=== PATIENT | male | born 1950 | race Caucasian/White ===

== ENCOUNTER 2017-01-04 16:22 | Emergency (ER) | payer MEDICARE, OTHER ==
[~2017-01-04] VITALS: Ht 160 cm; Wt 78.4 kg
[2017-01-04 16:25] VITALS: Ht 160 cm; Wt 78.4 kg
[2017-01-04] MEDS ORDERED: AZIT250T94 PO (16:55)
[2017-01-04] MEDS ORDERED: ALBU8.5H3 INH (16:55)
[2017-01-04] MEDS ORDERED: BENZ100C70 PO (16:56)
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
[2017-01-04 17:28] VITALS: BP 135/89; PULSE 68; RESP 18
== END 2017-01-04 17:25 | disposition home or self-care (01) ==
LOC: FTE 16:22
DX: J20.9 Acute bronchitis, unspecified (principal); I10 Essential (primary) hypertension
CPT/HCPCS: 99284

== ENCOUNTER 2017-02-13 12:47 | Emergency (ER) | payer MEDICARE, OTHER ==
[~2017-02-13] VITALS: Ht 172.7 cm; Wt 85.0 kg
[~2017-02-13 12:47] MED LIST: ALBU8.5H3 INH; AZIT250T94 PO; BENZ100C70 PO
[2017-02-13 12:55] VITALS: Ht 172.7 cm; Wt 85.0 kg
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
[2017-02-14] MEDS ORDERED: IBUP-1542 PO (19:30)
== END 2017-02-13 16:26 | disposition left against medical advice (07) ==
LOC: FTE 12:47
DX: M25.562 Pain in left knee (principal); I10 Essential (primary) hypertension
CPT/HCPCS: 99282

== ENCOUNTER 2017-02-14 17:24 | Emergency (ER) | payer MEDICARE, OTHER ==
[~2017-02-14] VITALS: Ht 177.8 cm; Wt 76.0 kg
[2017-02-14 17:39] VITALS: Ht 177.8 cm; Wt 76.0 kg
[2017-02-14] MEDS ORDERED: ONDANSETRON (ODT) 4 MG TAB ODT STA (18:50)
[2017-02-14] MEDS ORDERED: HYDROCODONE/APAP (10/325) TAB PO ONE (19:00)
[2017-02-14] MEDS ORDERED: IBUP-1542 PO (19:30)
--- NOTE | 2017-02-14 19:32 | RADRPT ---
PROCEDURE: Left knee x-ray CLINICAL INDICATION: left knee pain TECHNIQUE: Multiple views of the left knee were obtained. COMPARISON: None FINDINGS: There is normal mineralization. No fracture is identified. There is mild joint space narrowing in the medial femorotibial compartment. There is no joint effusion. There is no significant soft tissue swelling. IMPRESSION: Mild joint space narrowing seen in the medial femorotibial compartment. Otherwise, no significant ab normalities are identified. RPTAT:AAJJ Physician Giovanna Date Time Electronically viewed and signed by Rosas Donato Physician on 02/14/2017 19:32 ROBERTA/
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
[2017-02-14 21:18] VITALS: BP 115/63; PULSE 72; RESP 20; TEMP 98.7
== END 2017-02-14 21:18 | disposition home or self-care (01) ==
LOC: E/R 17:24
DX: S80.02XA Contusion of left knee, initial encounter (principal); I10 Essential (primary) hypertension; V03.10XA Pedestrian on foot injured in collision with car, pick-up truck or van in traffic accident, initial encounter; Z87.891 Personal history of nicotine dependence
CPT/HCPCS: 73562

== ENCOUNTER 2017-03-15 19:43 | Emergency (ER) | payer MEDICARE, OTHER ==
[~2017-03-15] VITALS: Ht 172.7 cm; Wt 78.0 kg
[~2017-03-15 19:43] MED LIST changes: -AZIT250T94 PO; -BENZ100C70 PO
[2017-03-15 19:49] VITALS: Ht 172.7 cm; Wt 78.0 kg
--- NOTE | 2017-03-15 20:45 | ERA ---
ER Documentation Chief Complaint Date/Time DATE: 03/15/17 TIME: 20:39 Chief Complaint lower back pain, states has broken spine HPI This is a 67-year-old male presenting with a chief complaint of back pain. Patient was seen at [facility] 3 days ago and diagnosed with a mild nonspecific stranding/fluid within the right retroperitoneum. Patient had a follow-up appointment with thoracic surgeon today but could not see the doctor due to multiple personal reasons. Patient's pain medication has run out. Patient is requesting more pain medication to last until Sunday. Patient has no other complaints at this time. Patient denies pain lasting more than 6 weeks ; Denies saddle parasthesia, incontinence, or RPND; Denies fever, chills, or night sweats. Patient also denies history of sciatica, disk herniation, spinal stenosis, fibromyalgia, cancer, HIV, IVDU, arthritis or recent surgery. Patient describes no other associated manifestations. ROS All systems reviewed and are negative except as per history of present illness. Medications Home Meds Active Scripts Albuterol Sulfate* (Proair HFA*) 8.5 Gm Hfa.aer.ad, 2 PUFF INH Q4H Y for WHEEZING AND SOB, #1 INHALER Prov:MARCIANO CHE PA-C 01/04/17 Allergies Allergies: Coded Allergies: No Known Drug Allergies (Verified Allergy, Unknown, 03/15/17) PMhx/Soc History of Surgery: No Hx Cardiac Disorders: Yes (htn) Hx Alcohol Use: Yes Hx Substance Use: No Hx Tobacco Use: No Smoking Status: Never smoker Physical Exam Vitals Vital Signs Date Time Temp Pulse Resp B/P Pulse Ox O2 Delivery O2 Flow Rate FiO2 03/15/17 19:49 99.9 82 20 169/71 97 Physical Exam Const: Well-appearing, no acute distress able to joke around. Head: Atraumatic Eyes: Normal Conjunctiva ENT: Normal External Ears, Nose and Mouth. Neck: Full range of motion..~ No meningismus. Resp: Clear to auscultation bilaterally Cardio: Regular rate and rhythm, no murmurs Abd: Soft, non tender, non distended. Normal bowel sounds Skin: No petechiae or rashes Back: Range of motion decreased secondary to pain. Negative straight leg raise test. No midline or flank tenderness Ext: No cyanosis, or edema Neur: Awake and alert. Paresthesia on the lateral thighs bilaterally. No saddle paresthesia. DTRs 2+ bilaterally. Otherwise neurovasculary intact. Psych: Normal Mood and Affect Procedures/MDM This is a 67-year-old male presenting with a chief complaint of back pain that was diagnosed as mild nonspecific stranding/fluid within the right retroperitoneum at [facility] by MRI and read by the radiologist Dr. Victor Manuel Babin. Patient is requesting a pain medication refill to last him to his appointment on Sunday. Patient's appointment was today but he could not make it. Patient had called the surgeon who has told him that it is appropriate to follow-up on Sunday. Patient's physical exam revealed numbness and tingling on the lateral thighs. There is no saddle paresthesia. DTRs are 2+ bilaterally in the patella. Patient was neurovascularly intact bilaterally. Patient denies urinary incontinence or retention. I have presented this case to my attending Dr. Hernandez who has reassured that pain medication filled through Sunday is acceptable. Will prescribe [address] [place] on discharge. Vitals are stable and his current condition is appropriate for discharge. Departure Diagnosis: Primary Impression: Back pain Qualified Code: M54.5 - Acute right-sided low back pain without sciatica Condition: Stable Additional Instructions: Follow-up with orthopedic/spine surgeon in 3 days. Return the the emergency department immediately if symptoms worsen or change. If you have any questions regarding medications, ask your pharmacist or us before you leave. If any adverse reactions occur while taking your medications, discontinue the treatment and return to the emergency department immediately. Take your medications as directed, and complete the entire course of treatment. LIN BRAGA PA-C Mar 15, 2017 20:45
[2017-03-15] MEDS ORDERED: HYDR-906 PO (20:46)
== END 2017-03-15 21:15 | disposition home or self-care (01) ==
LOC: FTE 19:43
DX: M54.5 Low back pain (principal); I10 Essential (primary) hypertension
CPT/HCPCS: 99283

== ENCOUNTER 2017-07-30 14:55 | Inpatient (IN) | payer MEDICARE, OTHER ==
[~2017-07-30] VITALS: Ht 172.7 cm; Wt 72.0 kg
[~2017-07-30 14:55] MED LIST changes: +HYDR-906 PO
[2017-07-30 14:58] VITALS: Ht 172.7 cm; Wt 72.0 kg
[2017-07-30] MEDS ORDERED: ONDANSETRON 4 MG INJ ONE (20:06)
[2017-07-30] MEDS ORDERED: morphine 4 MG/ML VIAL ONE (20:07)
[2017-07-30 22:32] LABS: ALANINE AMINOTRANSFERASE 65 IU/L (13-69); ALBUMIN 2.9 g/dl (3.3-4.9); ALBUMIN/GLOBULIN RATIO 0.56; ALKALINE PHOSPHATASE 214 IU/L (42-121); ANION GAP 11 (8-16); ASPARTATE AMINO TRANSFERASE 145 IU/L (15-46); BILIRUBIN,INDIRECT 3.1 mg/dl (0-1.1); BILIRUBIN,TOTAL 8.5 mg/dl (0.2-1.3); BLOOD UREA NITROGEN 17 mg/dl (7-20); CALCIUM 8.5 mg/dl (8.4-10.2); CARBON DIOXIDE 24 mmol/L (21-31); CHLORIDE 106 mmol/L (97-110); CREATININE 0.67 mg/dl (0.61-1.24); GLUCOSE 126 mg/dl (70-220); SODIUM 138 mmol/L (135-144); TROPONIN-I < 0.012 ng/ml (0.00-0.12)
--- NOTE | 2017-07-30 23:39 | ERD ---
ER Documentation Chief Complaint Chief Complaint c/o body ache , noted bruise on b/l arms , pt denies any fall HPI 67-year-old male complains of body aches. Patient denies any nausea vomiting fevers chills. Denies any focal neurologic complaints. Denies any trauma. Denies any other current issues. ROS All systems reviewed and are negative except as per history of present illness. Medications Home Meds Active Scripts Hydrocodone/Acetaminophen ([place] 5-325 Tablet) 1 Each Tablet, 1 TAB PO Q6H Y for PAIN, #7 TAB Prov:LIN BRAGA PA-C 03/15/17 Albuterol Sulfate* (Proair HFA*) 8.5 Gm Hfa.aer.ad, 2 PUFF INH Q4H Y for WHEEZING AND SOB, #1 INHALER Prov:MARCIANO CHE PA-C 01/04/17 Allergies Allergies: Coded Allergies: No Known Drug Allergies (Verified Allergy, Unknown, 03/15/17) PMhx/Soc History of Surgery: No Hx Cardiac Disorders: Yes (htn) Hx Alcohol Use: Yes (6 PK/DAY) Hx Substance Use: No Hx Tobacco Use: No Physical Exam Vitals Vital Signs Date Time Temp Pulse Resp B/P Pulse Ox O2 Delivery O2 Flow Rate FiO2 07/30/17 14:58 98.1 89 18 130/65 100 Physical Exam Const: [] Head: Atraumatic Eyes: Normal Conjunctiva ENT: Normal External Ears, Nose and Mouth. Neck: Full range of motion..~ No meningismus. Resp: Clear to auscultation bilaterally Cardio: Regular rate and rhythm, no murmurs Abd: Soft, non tender, non distended. Normal bowel sounds Skin: No petechiae or rashes Back: No midline or flank tenderness Ext: No cyanosis, or edema Neur: Awake and alert Psych: Normal Mood and Affect Result Diagram: 07/30/171999 Results 24 hrs Laboratory Tests Test 07/30/17 20:00 White Blood Count Pending Red Blood Count Pending Hemoglobin Pending Hematocrit Pending Mean Corpuscular Volume Pending Mean Corpuscular Hemoglobin Pending Mean Corpuscular Hemoglobin Concent Pending Red Cell Distribution Width Pending Platelet Count Pending Mean Platelet Volume Pending Sodium Level 138mmol/L Potassium Level 3.0mmol/L Chloride Level 106mmol/L Carbon Dioxide Level 24mmol/L Anion Gap 11 Blood Urea Nitrogen 17mg/dl Creatinine 0.67mg/dl Glucose Level 126mg/dl Calcium Level 8.5mg/dl Total Bilirubin 8.5mg/dl Direct Bilirubin 5.40mg/dl Indirect Bilirubin 3.1mg/dl Aspartate Amino Transf (AST/SGOT) 145IU/L Alanine Aminotransferase (ALT/SGPT) 65IU/L Alkaline Phosphatase 214IU/L Ammonia 22umol/l Troponin I < 0.012ng/ml Total Protein 8.0g/dl Albumin 2.9g/dl Globulin 5.10g/dl Albumin/Globulin Ratio 0.56 Lipase 55U/L Procedures/MDM Medical decision-making: Very pleasant patient with body aches. At this point clinically stable for outpatient management. Patient will be discharged home. Departure Diagnosis: Primary Impression: Pain Condition: Stable Patient Instructions: Chronic Pain ROXANNE DISLA Jul 30, 2017 23:39
[2017-07-30 23:41] LABS: INR 1.47; PROTIME 17.9 Sec (12.2-14.2); PT RATIO 1.4
[2017-07-30 23:42] LABS: PARTIAL THROMBOPLASTIN TIME 32.1 Sec (25.0-35.0)
[2017-07-30 23:44] LABS: ABNORMAL IP MESSAGE 1; BASOPHILS % 0.6 % (0.0-2.0); EOSINOPHILS % 0.6 % (0.0-7.0); HEMATOCRIT 39.5 % (42.0-52.0); HEMOGLOBIN 13.1 g/dl (14.0-18.0); LYMPHOCYTES # 0.7 10^3/ul (0.8-2.9); LYMPHOCYTES % 19.4 % (15.0-51.0); MEAN CORPUSCULAR HEMOGLOBIN 31.9 pg (29.0-33.0); MEAN CORPUSCULAR HGB CONC 33.2 g/dl (32.0-37.0); MEAN CORPUSCULAR VOLUME 96.1 fl (82.0-101.0); MONOCYTE # 0.7 10^3/ul (0.3-0.9); MONOCYTES % 20.6 % (0.0-11.0); NEUTROPHIL # 2.1 10^3/ul (1.6-7.5); NEUTROPHILS % 58.2 % (39.0-77.0); POSITIVE DIFF @See below; RED BLOOD COUNT 4.11 10^6/ul (4.70-6.10); RED CELL DISTRIBUTION WIDTH 20.8 % (11.5-14.5); WHITE BLOOD COUNT 3.6 10^3/ul (4.8-10.8)
[2017-07-31 00:05] LABS: PLATELET COUNT 26 10^3/UL (140-415)
--- NOTE | 2017-07-31 08:11 | RADRPT ---
PROCEDURE: XR Chest. CLINICAL INDICATION: Chest pain. TECHNIQUE: Portable AP view of the chest was obtained. COMPARISON: None. FINDINGS: The cardiomediastinal silhouette is mildly enlarged . Mild bibasilar subsegmental atelectasis is pr esent. There is no evidence of pneumonia. There is no evidence for pleural effusion, pneumothorax o r pulmonary vascular congestion. Multiple old healed right rib fractures are demonstrated. There is no evidence of acute osseous abnormality. RPTAT:HJJR IMPRESSION: 1. Mild cardiac silhouette enlargement and mild bibasilar subsegmental atelectasis. 2. Old healed right rib fractures Physician Roger Date Time Electronically viewed and signed by Physician Roger on 07/30/2017 23:00 /
[2017-07-31] MEDS ORDERED: POTASSIUM CHLORIDE (SR) 20 MEQ TAB PO STA ×2 (09:33→11:22)
[2017-07-31] MEDS ORDERED: ONDANSETRON 4 MG INJ IV PRN ×2 (10:30→11:30)
[2017-07-31] MEDS ORDERED: ACETAMINOPHEN 325 MG TAB PO PRN (10:30)
[2017-07-31 11:00] VITALS: TEMP 98.5
--- NOTE | 2017-07-31 11:15 | HP ---
Date/Time of Note Date/Time of Note DATE: 07/31/17 TIME: 11:15 Assessment/Plan VTE Prophylaxis VTE Prophylaxis Intervention: SCD's Assessment/Plan Chief Complaint/Hosp Course 67-year-old homeless male who is also a poor historian and daily alcohol abuse, presented to the emergency room with generalized weakness and inability to walk. 1. Generalized weakness/progressive debility. -Obtain lumbar spine MRI to rule out acute fractures. -PT eval and treatment. 2. Transaminase elevation with hyperbilirubinemia in a patient with alcoholism. Rule out Hep C, Alcoholic liver disease. -Obtain abdominal US,acute hepatitis panel/HIV antibodies. -MRCP to rule out choledocholithiasis. -Trend LFTs and consult GI. 3. Thrombocytopenia with concomitant neutropenia with hx of alcoholism. Rule out liver disease/splenomegaly. Hematological conditions remains in differential. If w/u for above causes negative will further expand differential to include Collagen/vascular disorders,infection and nutritional deficiencies and other causes of cytopenia. -F/u abdominal ultrasound. Transfuse 1 unit platelet and monitor level. -Obtain cultures. Will consider prophylactic antibiotics. 4. Electrolyte imbalances/hypokalemia -Replete. Add magnesium level. 5. History of asthma. Controlled. -As needed bronchodilators. 6. Chronic non-reducible Ventral hernia of right abdominal wall -At this time, patient does not want to have any further follow-up on this. 7. Chronic back pain with reported history of spinal fractures. -Continue pain medications as needed. Follow-up with MRI. 8. Homelessness. 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 9. Alcohol abuse. -Cessation advised. DVT prophylaxis: SCDs Plan: Patient will be admitted to inpatient floor. He will be started on a diet. We will also request manager social responsibility and case management consult as patient would benefit from extended care facility with his progressive debility and current homelessness situation. Further recommendations per hospital course. Approximately 60 minutes was spent on this history and physical. Patient was seen in collaboration with Dr. Sultana. Problems: HPI/ROS Admit Date/Time Admit Date/Time Hx of Present Illness This is a 67-year-old homeless male who is also a very poor historian, with a history of asthma, alcohol abuse, chronic back pain with reported spinal fractures, alcohol abuse, ventral hernia, presented to the emergency room with generalized body pain. Patient does not have a primary care doctor. In the emergency room, patient was noted with bruising on bilateral arms, however he denied any history of fall or trauma. He denied hematemesis, melena,hematuria, hematochezia, hematuria or other bleeding episodes. Patient denied chest pain, palpitation, shortness of breath, nausea, vomiting, abdominal pain, focal deficit or other constitutional symptoms. Patient repeatedly states that he is feeling weak all over the body and inability to walk. His initial labs with WBC 3600, platelet 26,000, potassium 3.0, total bilirubin 8.5, direct bilirubin 5.40 and indirect bilirubin 3.1 with AST 145/alkaline phosphatase 214 and elevated PT 17.9. Hgb stable at 13.1 with Hct 39.1. Patient was admitted for further evaluation. Patient was admitted for further evaluation ROS A 12 point review of system was assessed and is negative other than what is mentioned in HPI. PMH/Family/Social Past Medical History See HPI Past Surgical History See HPI Social History Former smoker. Current everyday alcohol abuse. Denied any illicit drug use. Smoking Status: Former smoker Exam/Review of Systems Vital Signs Vitals Vital Signs Date Time Temp Pulse Resp B/P Pulse Ox O2 Delivery O2 Flow Rate FiO2 07/31/17 08:18 98.9 105 18 130/69 98 Room Air Exam Exam General: Chronically ill looking, male who is also very lethargic HEENT: Normocephalic, Atraumatic, No laceration or hematoma; Eyes: PEERL, Conjunctiva clear, Anicteric sclera Neck: Supple without any lymphadenopathy, nontender, no JVD, no carotid bruits, trachea midline, no thyromegaly Cardiac: S1, S2 auscultated, regular rhythm and rate, no mumurs or gallop Pulmonary: Normal respiratory effort. Chest clear to auscultation bilaterally, no adventitious breath sounds GI: Huge mass/hernia to right abdomen. Soft, non tender, non- distended, no masses, no rebound tenderness or guarding. Bowel sounds active on all four quadrants Genitourinary: Deferred Extremities: Generalized weakness to lower extremities. Denies any numbness/ tingling. No cyanosis, clubbing, or edema. Pulses [2+] bilaterally. No focal weakness appreciated. Neurologic: Lethargic and confused. Follows simple commands. Skin: Clean,dry, and intact. No ecchymosis, no rashes, or lesions Labs Result Diagram: 07/30/17199907/30/171999 CONOR CARDONA NP Jul 31, 2017 11:15
[2017-07-31] MEDS ORDERED: SOD CHLORIDE 0.9% 250 ML IV* ONE (11:22)
[2017-07-31] MEDS ORDERED: ACETAMINOPHEN 650 MG SUPP PR PRN (11:30)
[2017-07-31] MEDS ORDERED: ALBUTEROL/IPRATROPIUM (NEB) 3 ML AMP HHN PRN (11:30)
[2017-07-31] MEDS ORDERED: NACL 0.9% 3 ML SYG IV SCH (11:30)
[2017-07-31 12:05] LABS: HAAIG REFLEX REFLEX FILED
[2017-07-31 12:20] VITALS: BP 138/82; RESP 18
[2017-07-31] MEDS: SOD CHLORIDE 0.9% 1,000 ML IV SCH (12:32)
[2017-07-31 12:38] LABS: CHOL/HDL RATIO 5.7 RATIO
[2017-07-31 13:28] LABS: HEPATITIS B CORE ANTIBODY NEGATIVE (NEGATIVE)
[2017-07-31 14:40] VITALS: BP 144/87; RESP 16
[2017-07-31] MEDS: ACETAMINOPHEN 325 MG TAB PO PRN (15:05)
[2017-07-31] MEDS ORDERED: MAGNESIUM SULFATE 2 GM/50 ML 50 ML IVPB ONE (15:30)
[2017-07-31] MEDS: morphine 2 MG INJ IV PRN ×2 (16:38→21:48)
[2017-07-31] MEDS ORDERED: PHYTONADIONE 10 MG/ML INJ SC ONE (17:30)
--- NOTE | 2017-07-31 17:46 | CONS ---
Date/Time of Note Date/Time of Note DATE: 07/31/17 TIME: 17:14 Assessment/Plan Assessment/Plan Chief Complaint/Hosp Course Summary Assessment and Plan: Assessment: Hyperbilirubinemia r/o choledocholithiasis vs worsening of liver disease Hematemesis-likely secondary to esophageal varices Black stools likely due to esophageal varices Generalized weakness Thrombocytopenia likely secondary to cirrhosis Abnormal LFTs/ Hep C Ab positive vs ETOH Cirrhosis-likely combination of EtOH and hepatitis C Electrolyte imbalance/hypokalemia/replaced History of asthma Chronic back pain Painless abdominal hernia Plan: Plan for EGD tomorrow N.p.o. after 08/01/2017 10am Endoscopy - risks/benefits/alternatives/indications of procedure and sedation/ anesthesia discussed with patient who states understanding and gives informed consent to proceed. PARQ held and questions were answered. MRCP ordered- Results pending- further recommendations based on results HCV RNA ordered Alpha-fetoprotein ordered Patient seen in collaboration with Dr. Urena Chief Complaint/Reason for Visit: Bilirubinemia Transaminitis Hematemesis Black stools History of Present Illness: This is a 67-year-old male with a history of cirrhosis, hepatitis C, HTN, and diabetes. He presented to the hospital with increased weakness. Initial workup revealed hyperbilirubinemia 8.5, elevated aminotransferase consistent with alcohol-induced (AST 145, ALT 65). Alk phos 214, albumin 2.9, K+ 3.0, PT 17.9, INR 1.47, platelets 26, hemoglobin 13.1, hematocrit 39.5. At the time of examination, pt states he had 1 episode of hematemesis yesterday, 2 black stools in the past few days. He currently denies abdominal pain, nausea, vomiting, unintentional weight loss, constipation , pyrosis, or anorexia. He had an EGD about 6-8 months ago, and was told he had "swollen veins, which will go away". With recent hematemesis and black stools will plan for EGD tomorrow, will give vitamin K 10 mg subcutaneously this evening and again in the morning, he has already received 1 unit of platelets. MRCP has been ordered and results are pending, further recommendations based on results of MRCP. Will check HCV RNA, and alpha-fetoprotein. Thank you for this consultation. Past Medical History: Hypertension Diabetes Cirrhosis of the liver Hepatitis C Chronic back pain History of asthma Abdominal hernia Allergies: No known drug allergies Family History: No pertinent family history Social History: Denies smoking Denies drug use including IV drugs EtOH drinks 3 beers a day PHYSICAL EXAMINATION: GENERAL: Disheveled, alert & oriented x 3, in no acute distress SKIN: No lesions, stigmata chronic liver disease, multiple bruises LYMPHATIC: No palpable lymphadenopathy. HEAD: Normocephalic, atraumatic, no tenderness. EYES: Pupils equal reactive to light and accommodation, full extraocular movements, sclera clear, non-icteric, no discharge. EARS/NOSE AND THROAT: Ears normal, nose normal, oropharynx normal, oral membranes well hydrated without lesions. NECK: Supple, no masses, thyroid normal, CHEST: Inspection within normal limits. CARDIOVASCULAR: Heart: Regular rate and rhythm, no murmurs, gallops or rubs. RESPIRATORY: Lungs clear to auscultation and percussion, no wheezing, no rubs GASTROINTESTINAL AND LIVER: Abdomen: Soft, non tenderness, non-painful abd hernia, no masses, no guarding, no rebound tenderness, normoactive bowel sounds. Rectal: Deferred. GENITOURINARY: Male genitalia within normal limits. Problems: Consultation Date/Type/Reason Admit Date/Time Date of Consultation: Jul 31, 2017 Type of Consultation: GI Reason for Consultation Hyperbilirubinemia Transaminitis Hematemesis/black stools ENT: no complaints Social History Smoking Status: Former smoker Exam/Review of Systems Vital Signs Vitals Vital Signs Date Time Temp Pulse Resp B/P Pulse Ox O2 Delivery O2 Flow Rate FiO2 07/31/17 14:40 98.8 99 16 144/87 98 07/31/17 11:00 Room Air Results Result Diagram: 07/30/17199907/30/171999 Results 24 hrs Laboratory Tests Test 07/30/17 20:00 07/31/17 11:56 White Blood Count 3.6 L Red Blood Count 4.11 L Hemoglobin 13.1 L Hematocrit 39.5 L Mean Corpuscular Volume 96.1 Mean Corpuscular Hemoglobin 31.9 Mean Corpuscular Hemoglobin Concent 33.2 Red Cell Distribution Width 20.8 H Platelet Count 26 *L Mean Platelet Volume Neutrophils % 58.2 Lymphocytes % 19.4 Monocytes % 20.6 H Eosinophils % 0.6 Basophils % 0.6 Nucleated Red Blood Cells % 0.0 Neutrophils # 2.1 Lymphocytes # 0.7 L Monocytes # 0.7 Eosinophils # 0.0 Basophils # 0.0 Nucleated Red Blood Cells # 0.0 Prothrombin Time 17.9 H Prothrombin Time Ratio 1.4 INR International Normalized Ratio 1.47 Activated Partial Thromboplast Time 32.1 Sodium Level 138 Potassium Level 3.0 L Chloride Level 106 Carbon Dioxide Level 24 Anion Gap 11 Blood Urea Nitrogen 17 Creatinine 0.67 Glucose Level 126 Calcium Level 8.5 Total Bilirubin 8.5 H Direct Bilirubin 5.40 H Indirect Bilirubin 3.1 H Aspartate Amino Transf (AST/SGOT) 145 H Alanine Aminotransferase (ALT/SGPT) 65 Alkaline Phosphatase 214 H Ammonia 22 Troponin I < 0.012 Total Protein 8.0 Albumin 2.9 L Globulin 5.10 H Albumin/Globulin Ratio 0.56 Lipase 55 Hemoglobin A1c 4.4 Magnesium Level 1.5 L Triglycerides Level 105 Cholesterol Level 57 L LDL Cholesterol, Calculated 26 HDL Cholesterol 10 L Cholesterol/HDL Ratio 5.7 Thyroid Stimulating Hormone (TSH) 2.940 Hepatitis B Surface Antigen NEGATIVE Hepatitis B Core Total Antibody NEGATIVE Hepatitis C Antibody REACTIVE H HIV (1&2) Antibody NEGATIVE Medications Medications Current Medications Sodium Chloride (NS) 1,000 ml @ 50 mls/hr Q20H IV Last administered on 12:32; Admin Dose 50 MLS/HR; Start 07/31/17 at 11:15 Ondansetron HCl (Zofran Inj) 4 mg Q6H PRN IV NAUSEA AND/OR VOMITING; Start 07/31/17 at 11:30 Acetaminophen (Tylenol Tab) 650 mg Q6H PRN PO PAIN LEVEL 1-3 OR FEVER Last administered on 07/31/17 15:05; Admin Dose 650 MG; Start 07/31/17 at 11:30 Acetaminophen (Tylenol Supp) 650 mg Q6H PRN SD PAIN LEVEL 1-3 OR FEVER; Start 07/31/17 at 11:30 Morphine Sulfate (morphine) 2 mg Q4H PRN IV SEVERE PAIN LEVEL 7-10 Last administered on 07/31/17 16:38; Admin Dose 2 MG; Start 07/31/17 at 11:30 Docusate Sodium (Colace) 100 mg Q12H PRN PO CONSTIPATION; Start 07/31/17 at 11: 30 Famotidine 20 mg 20 mg Q12 PO ; Start 07/31/17 at 21:00 Magnesium Sulfate (Magnesium Sulfate 2 Gm/50 ml) 50 ml @ 25 mls/hr ONCE ONCE IVPB Last administered on 07/31/17t 16:37; Admin Dose 25 MLS/HR; Start at 15:30; Stop 07/31/17 at 17:29 Copies To: CC: WILL URENA MD, VICTORIA Jul 31, 2017 17:26
[2017-07-31] MEDS: FAMOTIDINE 20 MG TAB PO SCH (20:12)
[2017-07-31] MEDS: ALBUTEROL/IPRATROPIUM (NEB) 3 ML AMP HHN SCH (21:00)
[2017-07-31 21:08] VITALS: BP 105/59; RESP 18
[2017-08-01] VITALS (17 sets, daily range): BP systolic 100–164; BP diastolic 57–102; PULSE 90–114; RESP 17–20
[2017-08-01] MEDS ORDERED: VANCOMYCIN IV PER PHARMACY XX SCH (03:30)
[2017-08-01] MEDS ORDERED: VANCOMYCIN 1.5 GM in SOD CHLORIDE 0.9% 250 ML IVPB ONE (04:00)
[2017-08-01 06:00] LABS: ALBUMIN 2.5 g/dl (3.3-4.9); ALBUMIN/GLOBULIN RATIO 0.53; BILIRUBIN,DIRECT 2.1 mg/dl (0.00-0.20); BILIRUBIN,INDIRECT 2.5 mg/dl (0-1.1); BILIRUBIN,TOTAL 4.6 mg/dl (0.2-1.3); CREATININE 0.63 mg/dl (0.61-1.24); MAGNESIUM 1.7 mg/dl (1.7-2.5); PHOSPHORUS 2.4 mg/dl (2.5-4.9); POTASSIUM 3.9 mmol/L (3.5-5.1); TOTAL PROTEIN 7.2 g/dl (6.1-8.1)
[2017-08-01] MEDS: morphine 2 MG INJ IV PRN ×3 (06:31→23:21)
[2017-08-01 07:09] LABS: ABNORMAL IP MESSAGE 1; HEMATOCRIT 33.4 % (42.0-52.0); HEMOGLOBIN 11.1 g/dl (14.0-18.0); MEAN CORPUSCULAR HEMOGLOBIN 32.8 pg (29.0-33.0); MEAN CORPUSCULAR HGB CONC 33.2 g/dl (32.0-37.0); MEAN CORPUSCULAR VOLUME 98.8 fl (82.0-101.0); MEAN PLATELET VOLUME 11.3 fl (7.4-10.4); POSITIVE DIFF @See below; RED BLOOD COUNT 3.38 10^6/ul (4.70-6.10); RED CELL DISTRIBUTION WIDTH 21.1 % (11.5-14.5); WHITE BLOOD COUNT 1.5 10^3/ul (4.8-10.8)
[2017-08-01] MEDS: SOD CHLORIDE 0.9% 1,000 ML IV SCH ×2 (07:15→20:18)
[2017-08-01 07:16] LABS: PLATELET COUNT 25 10^3/UL (140-415)
[2017-08-01] MEDS: ALBUTEROL/IPRATROPIUM (NEB) 3 ML AMP HHN SCH ×4 (08:25→21:40)
[2017-08-01] MEDS: FAMOTIDINE 20 MG TAB PO SCH ×2 (09:00→20:19)
[2017-08-01] MEDS ORDERED: PHYTONADIONE 10 MG/ML INJ SC ONE (09:00)
[2017-08-01 09:41] LABS: ANISOCYTOSIS 3+ (0-0); BASOPHILS % (M) 1 % (0-2); BURR CELLS 1+ (0-0); EOSINOPHILS % (M) 2 % (0-7); GIANT THROMBO% (M) 5 % (0-0); MONOCYTES % (M) 13 % (0-11); MYELOCYTES % (M) 1 % (0-0); PLATELET ESTIMATE SIG DECREASED; POIKILOCYTOSIS 3+ (0-0); POLYCHROMASIA 2+ (0-0); REACTIVE LYMPHOCYTES% (M) 1 % (0-0); TARGET CELLS 1+ (0-0)
--- NOTE | 2017-08-01 10:23 | RADRPT ---
PROCEDURE: US Abdomen. CLINICAL INDICATION: ELEVATED LFTS / SEE NOTES TECHNIQUE: Multiple real-time images were acquired of the patient's abdomen and retroperitoneum ut ilizing a high resolution transducer. COMPARISON: None. FINDINGS: The liver demonstrates normal echogenicity. The liver is normal in size and no focal solid lesions are seen. The portal vein is patent with normal direction of flow. No intrahepatic biliary dilatat ion is seen. The liver measures 16.0 cm in length. A 2.3 cm gallstone is located within the neck of the gallbladder. In addition there is gallbladder s ludge. There is no evidence of wall thickening, surrounding fluid or positive Smith's sign. The co mmon bile duct measures 11.7 mm in maximal dimension. The spleen is enlarged in size. The spleen measures 17.4 cm in length. No free fluid is identified. The left kidney is normal in size, and demonstrate normal echogenicity and cortical thickness. Ther e is no evidence of hydronephrosis. A 2 x 2 cm left renal cyst is present. There is no evidence of h ydronephrosis. There are no kidney stones. The pancreas, aorta and inferior vena cava were not visualized. IMPRESSION: 1. Cholelithiasis and sludge without evidence of gallbladder wall thickening, surrounding fluid or p ositive sonographic Smith's sign. 2. Dilated common bile duct without intrahepatic biliary ductal dilatation. The common bile duct me asures 11.7 mm. 3. Splenomegaly. 4. Unremarkable liver. 5. Left renal cyst. 6. The pancreas, aorta, and inferior vena cava were not visualized. RPTAT: HRSR Physician Karen Date Time Electronically viewed and signed by Physician Karen on 08/01/2017 10:22 RR/
[2017-08-01] MEDS: LEVOFLOXACIN 500MG/D5W (PMX) 100 ML IVPB SCH (11:36)
--- NOTE | 2017-08-01 12:07 | PN ---
Date/Time of Note Date/Time of Note DATE: 08/01/17 TIME: 12:07 Assessment/Plan VTE Prophylaxis VTE Prophylaxis Intervention: ambulation, SCD's Lines/Catheters IV Catheter Type (from Nrsg): Mid Line Urinary Cath still in place: No Assessment/Plan Chief Complaint/Hosp Course 1. Generalized weakness/progressive debility. -Follow-up with lumbar spine MRI to rule out acute fractures. -PT eval and treatment. 2. Alcoholic and Hep C Liver cirrhosis. -Hyperbilirubinemia portends a poor prognosis - Recommend outpatient Motorcycle Technician follow-up if patient is amenable. -Conservative medical management/Lifestyle modification/ Cessation of alcohol abuse. 3.Hepatitis C. -F/u RNA PCR studies to detect current infection -Defer GI on further recs. 4. Transaminase elevation with hyperbilirubinemia secondary to #2 -Monitor 5. Thrombocytopenia with concomitant Leukopenia, most likely secondary to splenomegaly with splenic margination. Hematological conditions remains in differential but is less likely given the normal AFP/Monospot. Follow-up peripheral smear studies. -Status post plateletpheresis- GI team had ordered 2 plateletpheresis today prior EGD.Would not correct platelet any further. -Hold off to GCSF as there is no absolute neutropenia. If no improvement, consider inpatient heme eval-if not, defer for outpatient follow-up 6. Hematemesis, acute GI bleed (This was not mentioned to me with first encounter). US with stigmata of liver disease with portal HTN concerning for variceal bleed. -GI on board and plan for endoscopy -Monitor HH closely and ransfuse as indicated. 7. Anemia, multifactorial with acute and chronic GI blood loss, alcohol toxicity and spllenomegaly -Stable HH.Monitor closely. 8. SIRS with Leukopenia- Needs to rule out sepsis. -Currently no indication for any GCSF as his neutrophils count stable. -Obtain lactate level. Continue IV fluids, start prophylactic antibiotic with Levaquin and vancomycin -Obtain CRP/ESR and follow-up final cultures 9.Stigmata of Portal HTN/Splenomegaly/Hypoalbuminemia with liver cirrhosis 10. History of asthma. Controlled. -As needed bronchodilators. 11. Chronic non-reducible Ventral hernia of right abdominal wall -At this time, patient does not want to have any further follow-up on this. 12. Chronic back pain with reported history of spinal fractures. -Continue pain medications as needed. Follow-up with MRI. 13.Cholelithiasis. -F/u MRCP to rule out choledocho -Surgery eval 14. Homelessness. 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 15. Alcohol abuse. -Cessation advised. DVT prophylaxis: SCDs Plan: Follow-up with GI recommendations. Follow-up final cultures. Patient was seen in collaboration with Dr. Sultana. Problems: Subjective 24 Hr Interval Summary Free Text/Dictation Today patient is more awake. He has been tolerating diet. However, he now reports to me that he had bloody vomiting episode prior to hospitalization. Patient continued to have weakness with general body pain. He denied any nausea, vomiting or localized abdominal pain. Patient had documented temperature 100.5 with pulse rate 102 yesterday. He denied any chills. Exam/Review of Systems Vital Signs Vitals Vital Signs Date Time Temp Pulse Resp B/P Pulse Ox O2 Delivery O2 Flow Rate FiO2 08/01/17 08:00 98.6 84 20 132/64 96 07/31/17 11:00 Room Air Intake and Output 07/31/17 07/31/17 08/01/17 14:59 22:59 06:59 Intake Total 1060 ml 1100 ml Balance 1060 ml 1100 ml Exam General: Chronically ill looking male, not in any acute distress . HEENT: Normocephalic, Atraumatic, No laceration or hematoma; Eyes: PEERL, Conjunctiva clear, Anicteric sclera Neck: Supple without any lymphadenopathy, nontender, no JVD, no carotid bruits, trachea midline, no thyromegaly Cardiac: S1, S2 auscultated, regular rhythm and rate, no mumurs or gallop Pulmonary: Normal respiratory effort. Chest clear to auscultation bilaterally, no adventitious breath sounds GI: Huge mass/hernia to right abdomen. Soft, non tender, non- distended, no masses, no rebound tenderness or guarding. Bowel sounds active on all four quadrants Genitourinary: Deferred Extremities: Generalized weakness to lower extremities. Denies any numbness/ tingling. No cyanosis, clubbing, or edema. Pulses [2+] bilaterally. No focal weakness appreciated. Neurologic: Awake oriented 3. On and off confusion. Follows commands. Skin: Clean,dry, and intact. No ecchymosis, no rashes, or lesions Results Result Diagram: 08/01/17 0637 08/01/17 0443 Results 24 hrs Laboratory Tests Test 07/31/17 14:04 08/01/17 04:43 08/01/17 04:57 08/01/17 05:36 Alpha Fetoprotein 3.51 Sodium Level 140 Potassium Level 3.9 Chloride Level 111 H Carbon Dioxide Level 22 Anion Gap 11 Blood Urea Nitrogen 14 Creatinine 0.63 Glucose Level 87 Calcium Level 8.0 L Phosphorus Level 2.4 L Magnesium Level 1.7 Total Bilirubin 4.6 #H Direct Bilirubin 2.10 #H Indirect Bilirubin 2.5 H Aspartate Amino Transf (AST/SGOT) 101 H Alanine Aminotransferase (ALT/SGPT) 53 Alkaline Phosphatase 212 H Total Protein 7.2 Albumin 2.5 L Globulin 4.70 H Albumin/Globulin Ratio 0.53 C-Reactive Protein 2.9 H Lab Scanned Report BLOOD TRANSFUSION Test 08/01/17 06:37 White Blood Count 1.5 #L Red Blood Count 3.38 L Hemoglobin 11.1 L Hematocrit 33.4 L Mean Corpuscular Volume 98.8 Mean Corpuscular Hemoglobin 32.8 Mean Corpuscular Hemoglobin Concent 33.2 Red Cell Distribution Width 21.1 H Platelet Count 25 *L Mean Platelet Volume 11.3 H Segmented Neutrophils % (Manual) 61 Band Neutrophils % (Manual) 5 H Lymphocytes % (Manual) 16 Reactive Lymphocytes % (Manual) 1 H Monocytes % (Manual) 13 H Eosinophils % (Manual) 2 Basophils % (Manual) 1 Myelocytes % (Manual) 1 H Nucleated Red Blood Cells % 0.0 Neutrophils # (Manual) 0.9 L Band Neutrophils # 0.0 Absolute Lymphocytes (Manual) 0.2 L Reactive Lymphocytes # 0.0 Absolute Monocytes (Manual) 0.1 L Basophils # (Manual) 0.0 Myelocytes # 0.0 Platelet Estimate SIG DECREASED Giant Platelets 5 H Polychromasia 2+ Poikilocytosis 3+ Anisocytosis 3+ Macrocytosis 3+ Target Cells 1+ Medications Medications Current Medications Sodium Chloride (NS) 1,000 ml @ 50 mls/hr Q20H IV Last administered on t 12:32; Admin Dose 50 MLS/HR; Start 07/31/17 at 11:15 Ondansetron HCl (Zofran Inj) 4 mg Q6H PRN IV NAUSEA AND/OR VOMITING; Start 07/31/17 at 11:30 Acetaminophen (Tylenol Tab) 650 mg Q6H PRN PO PAIN LEVEL 1-3 OR FEVER Last administered on 07/31/17 15:05; Admin Dose 650 MG; Start 07/31/17 at 11:30 Acetaminophen (Tylenol Supp) 650 mg Q6H PRN NE PAIN LEVEL 1-3 OR FEVER; Start 07/31/17 at 11:30 Morphine Sulfate (morphine) 2 mg Q4H PRN IV SEVERE PAIN LEVEL 7-10 Last administered on 08/01/17 06:31; Admin Dose 2 MG; Start 07/31/17 at 11:30 Docusate Sodium (Colace) 100 mg Q12H PRN PO CONSTIPATION; Start 07/31/17 at 11: 30 Famotidine 20 mg 20 mg Q12 PO Last administered on 07/31/17 20:12; Admin Dose 20 MG; Start 07/31/17 at 21:00 Vancomycin HCl 250 ml @ 125 mls/hr Q12H IVPB ; Start 08/01/17 at 16:00 Levofloxacin/ Dextrose (Levaquin 500mg/ D5W 100 ml (Pmx)) 100 ml @ 100 mls/hr Q24H IVPB Last administered on 08/01/17 11:36; Admin Dose 100 MLS/HR; Start 08/01/17 at 09:30 CONOR CARDONA NP Aug 01, 2017 12:07 CONOR CARDONA NP Aug 01, 2017 12:07
--- NOTE | 2017-08-01 15:12 | RADRPT ---
Echocardiogram Report Patient Name: CHINA DU Gender: Male Date: 1950 Study Date: 31-Jul-2017 Screen Handler: [facility] Location: [id number] Ref. Physician: CONOR CARDONA Quality: Adequate Procedures: Transthoracic echocardiogram with complete 2D, M-Mode, and doppler examination. Indications: Weakness. 2D/M Mode Doppler Measurement Value Normal Ranges Measurement Value Normal Ranges LVIDd 2D 4.0 3.5 - 5.6 cm AV Peak Jorge Luis 1.9 m/sec LVIDs 2D 2.5 2.1 - 4.1 cm AV Peak PG 15.0 mmHg FS 2D 37.4 % LVOT Peak Jorge Luis 1.5 m/sec LVPWd 2D 1.3 0.6 - 1.1 cm LVOT Peak PG 9.0 mmHg IVSd 2D 1.3 0.6 - 1.1 cm MV E Peak Jorge Luis 0.6 m/sec IVS/LVPW 2D 1.0 MV A Peak Jorge Luis 1.2 m/sec AoR Diam 2D 2.7 2.0 - 3.7 cm MV E/A 0.5 LA/Ao 2D 1 0 - 1 MV Decel Time 173 msec EDV 2D 62.1 cm3 MV E/A 0.5 ESV 2D 15.3 cm3 TR Peak Jorge Luis 2.5 m/sec LA Dimen 2D 2.5 2.3 - 4.0 cm TR Peak PG 26.0 mmHg RVSP 29.0 mmHg Findings Left Ventricle: Overall, normal left ventricular systolic function. Not all segments visualized. Normal left ventricular cavity size. Mild concentric left ventricular hypertrophy. Ejection fraction is visually estimated at 60 %. Tissue Doppler/Mitral Doppler indices are consistent with impaired relaxation (Stage I diastolic dysfunction). Right Ventricle: Normal right ventricular size. Normal right ventricular systolic function. Left Atrium: The left atrium is normal in size. Right Atrium: The right atrium is normal in size. Mitral Valve: Mild mitral leaflet calcification. Mild mitral annular calcification. Trace mitral regurgitation. Aortic Valve: Normal appearance of the aortic valve. No significant aortic stenosis or insufficiency. Tricuspid Valve: Normal appearance and function of the tricuspid valve with trace physiologic regurgitation. Estimated peak PA systolic pressure 29 mmHg. Pulmonic Valve: Pulmonic valve not well visualized. No evidence of pulmonic regurgitation. Pericardium: Normal pericardium with no significant pericardial effusion. Aorta: Normal aortic root. IVC: Normal size and normal respiratory collapse consistent with normal right atrial pressure. Conclusions 1.Overall, normal left ventricular systolic function. Not all segments visualized. Normal left ventricular cavity size. Mild concentric left ventricular hypertrophy. Ejection fraction is visually estimated at 60 %. Tissue Doppler/Mitral Doppler indices are consistent with impaired relaxation (Stage I diastolic dysfunction). 2.Normal right ventricular size. Normal right ventricular systolic function. 3.The left atrium is normal in size. 4.The right atrium is normal in size. 5.No significant valvular stenosis or regurgitation seen. 6.Normal pericardium with no significant pericardial effusion. Electronically Signed By: Mundo Liu 01-Aug-2017 15:12:14 -0800 Patient Name: CHINA DU Study Date: 31-Jul-2017 [id number]
--- NOTE | 2017-08-01 15:46 | RADRPT ---
Vent Rate: 105 bpm RR Interval: 0 msec MA Interval: 140 msec QRS Duration: 80 msec QT Interval: 364 msec QTC Interval: 481 msec P-R-T [place]: 64 - 48 - 62 degrees Sinus tachycardia Otherwise normal ECG Electronically Signed By: Andrae Quinones [id number]
[2017-08-01 16:24] LABS: INR 1.57; PROTIME 18.9 Sec (12.2-14.2); PT RATIO 1.5
[2017-08-01] MEDS: VANCOMYCIN 1 GM in NS 250 ML IVPB SCH (16:42)
[2017-08-01 17:35] LABS: FOLATE 15.8 ng/ml (2.8-20.0)
[2017-08-01] MEDS ORDERED: PROPOFOL 20 ML ONE (17:50)
[2017-08-01] MEDS ORDERED: FENTAnyl 50 MCG/ML VIAL ONE ×2 (17:50→18:22)
--- NOTE | 2017-08-01 18:00 | HPN ---
Date/Time of Note Date/Time of Note DATE: 08/01/17 TIME: 18:00 Interval H&P Admission Note Pt. seen H&P reviewed: No system changes WILL CONWAY MD Aug 01, 2017 18:00
--- NOTE | 2017-08-01 18:28 | HPN ---
Date/Time of Note Date/Time of Note DATE: 08/01/17 TIME: 18:27 Interval H&P Admission Note Pt. seen H&P reviewed: No system changes WILL CONWAY MD Aug 01, 2017 18:28
--- NOTE | 2017-08-01 18:33 | OPPN ---
Date/Time of Note Date/Time of Note DATE: 08/01/17 TIME: 18:28 Proc Note GI Procedure Date 08/01/17 Indication: other (GI bleeding) Pre-procedure Diagnosis GI bleeding Post-procedure Diagnosis Impression: Grade III/IV esophageal varices Post EVL 3 Gastritis Duodenitis Plan: PPI twice daily Monitor H&H, transfuse as necessary Consider hematology eval for persistent profound thrombocytopenia Review of MRCP as soon as available . Procedure Performed: Endoscopy (With endoscopic variceal ligation) Surgeon WILL CONWAY MD See signature line Secondary Connector Armature none Anesthesia Type: MAC Anesthesiologist: NANDA MOREJON MD Tourniquet Time none EBL none Transfusion required none Biopsy 1: None Grafts/Implants Endoscopic variceal ligation 3 Tubes/Drains none Complication(s) none Disposition: PACU Procedure Description Preoperative Diagnosis: After informed consent, with the patient/relatives understanding the procedure, its indications, potential risks and complications, including but not limited to : allergic reaction, bleeding, perforation or infection, and after all pertinent questions were answered to the patients satisfaction, the patient/ relatives signed witnessed informed consent. Following this, premedication was administered slowly IV push under careful cardiovascular and respiratory monitoring with pulse oximetry, automatic blood pressure, and equipment monitor phototypesetting. Once the sedative effect was achieved the patient was place in the left lateral decubitus, the panendoscope was introduced and advanced under visual control. Careful examination of the upper gastrointestinal tract, both on insertion as well as withdrawal of the instrument disclosing the following findings: ESOPHAGUS: the mucosa of the entire esophagus was carefully examined and showed the following findings: There are large grade III/IV esophageal varices. Endoscopic variceal ligation 3 was applied upon completion of examination with no evidence complication. Otherwise the mucosa appears within normal limits. There is no evidence of esophagitis, neoplasm, or stricture. No Hiatal Hernia identified. STOMACH: Upon entrance to the stomach air was insufflated, the gastric cabrera distended normally. The mucosa of the fundus, body and antrum of the stomach was carefully examined both head-on and on retroflexion, and showed the following findings: There is significant erythema, edema and congestion of the mucosa consistent with portal hypertensive gastropathy. Otherwise the mucosa appears within normal limits with no abnormalities. There is no evidence of gastritis, ulcers or neoplasm. PYLORUS: The pylorus was carefully examined and showed the following findings: the pylorus appears patent and within normal limits, with no evidence of gastric outlet obstruction. DUODENUM: The duodenal mucosa was carefully examined in the duodenal bulb as well as the second portion of the duodenum and showed the following findings: There is significant erythema and edema of the mucosa of the duodenal bulb. No definitive ulceration is present. Otherwise the mucosa appears unremarkable with no evidence of ulcer or neoplasm. Copies To: CC: WILL CONWAY MD, MORDO MD Aug 01, 2017 18:32
[2017-08-01] MEDS ORDERED: LABETALOL HCL 20MG INJ ONE (19:08)
[2017-08-01] MEDS ORDERED: LABETALOL HCL 20MG INJ IV ONE (19:30)
[2017-08-01] MEDS: ACETAMINOPHEN 325 MG TAB PO PRN (20:19)
[2017-08-02 03:35] VITALS: BP 132/98; RESP 18
[2017-08-02] MEDS: DOCUSATE SODIUM 100 MG CAP PO PRN (04:11)
[2017-08-02] MEDS: morphine 2 MG INJ IV PRN ×4 (04:11→21:29)
[2017-08-02] MEDS: VANCOMYCIN 1 GM in NS 250 ML IVPB SCH ×2 (04:12→18:19)
--- NOTE | 2017-08-02 06:39 | RADRPT ---
PROCEDURE: MR Abdomen without contrast and MRCP. CLINICAL INDICATION: Right upper quadrant abdominal pain. TECHNIQUE: MRI abdomen in conjunction with MRCP was performed without the administration of intrav enous contrast. COMPARISON: Ultrasound abdomen, 08/01/2017 FINDINGS: There is diffuse anasarca. Small bilateral pleural effusions and small to moderate abdominopelvic as cites. Shrunken nodular liver, compatible with cirrhotic change. The spleen is enlarged measuring up to 17 cm in craniocaudal length. There are multiple stones within gallbladder, including a dominant 2.4 cm calculus within the gallbl adder neck. There is no gallbladder wall thickening or inflammation. There is moderate extrahepatic bile duct dilatation with common bile duct measuring up to 8 mm in maximal transverse diameter. There is a ventral hernia identified in the right lower quadrant abdominal wall with herniation of m ultiple small bowel loops without bowel obstruction IMPRESSION: Markedly limited examination due to severe respiratory motion artifact. Liver cirrhosis with stigmata of portal hypertension including splenomegaly and small to moderate ab dominopelvic ascites. There is also small pleural effusions and extensive overlying anasarca. Cholelithiasis without gallbladder wall thickening or inflammation. There is mild to biliary dilatat ion without filling defect or choledocholithiasis. RPTAT: EE .Gildardo Cuellar MD, MD Date Time Electronically viewed and signed by .Gildardo Cuellar MD, on 08/02/2017 06:44 .C/
[2017-08-02 06:50] LABS: ABNORMAL IP MESSAGE 1; HEMATOCRIT 31.7 % (42.0-52.0); MEAN CORPUSCULAR HEMOGLOBIN 32.4 pg (29.0-33.0); MEAN CORPUSCULAR HGB CONC 31.5 g/dl (32.0-37.0); MEAN CORPUSCULAR VOLUME 102.6 fl (82.0-101.0); MEAN PLATELET VOLUME 10.9 fl (7.4-10.4); POSITIVE DIFF @See below; RED BLOOD COUNT 3.09 10^6/ul (4.70-6.10); RED CELL DISTRIBUTION WIDTH 21.1 % (11.5-14.5); WHITE BLOOD COUNT 1.8 10^3/ul (4.8-10.8)
[2017-08-02 06:54] LABS: PLATELET COUNT 34 10^3/UL (140-415)
[2017-08-02] MEDS: SOD CHLORIDE 0.9% 1,000 ML IV SCH ×2 (06:58→16:56)
[2017-08-02 07:48] LABS: ANISOCYTOSIS 3+ (0-0); BASOPHILS % (M) 1 % (0-2); BURR CELLS 3+ (0-0); EOSINOPHILS % (M) 8 % (0-7); GIANT THROMBO% (M) 2 % (0-0); MONOCYTES % (M) 13 % (0-11); PLATELET ESTIMATE SIG DECREASED; POIKILOCYTOSIS 3+ (0-0); POLYCHROMASIA 3+ (0-0); SPHEROCYTES 1+ (0-0)
[2017-08-02] MEDS: LEVOFLOXACIN 500MG/D5W (PMX) 100 ML IVPB SCH (07:59)
[2017-08-02] MEDS: FAMOTIDINE 20 MG TAB PO SCH ×2 (07:59→21:28)
[2017-08-02 08:28] VITALS: BP 137/89; RESP 19
[2017-08-02] MEDS: ALBUTEROL/IPRATROPIUM (NEB) 3 ML AMP HHN SCH ×4 (08:56→22:43)
--- NOTE | 2017-08-02 11:26 | CONS ---
Date/Time of Note Date/Time of Note DATE: 08/02/17 TIME: 10:36 Assessment/Plan Assessment/Plan Chief Complaint/Hosp Course 1. Cholelithiasis without cholecystitis/choledocholithiasis: No pain, negative roberson's; discussed cholecystectomy; refusing any intervention at this time -no emergent surgical intervention needed at this time; eventual lap reginald, can be done outpatient -follow up with pcp (to find pcp) 2. Generalized weakness: no focal weakness -further workup per medical team 3. Transaminitis; elevated bili; AST greater elevation that alk phos > likely 2/ 2 hepatocellular disease (hep c hx) more than biliary tree obstruction; improving; -trend 4. Pancytopenia: ?2/2 liver dx +/- other -?onc consult for further eval -suppportive 5. Macrocytic anemia with Grade III/IV esophageal varices (Post EVL 3), Gastritis, Duodenitis -ppi -bp control -monitor and transfuse as needed 6. History of asthma -supportive 7. Ventral hernia : no pain, reducible -eventual corrective surgery 8. Alcohol abuse -strongly advice cessation -?outpatient rehab program Thank you. Patient seen and examined in collaboration with Dr. Lyle Lenz. Problems: Consultation Date/Type/Reason Admit Date/Time Date of Consultation: Aug 02, 2017 Type of Consultation: surgical Reason for Consultation ?cholecystitis Referring Provider: CONOR CARDONA NP Hx of Present Illness Esteban Olsen is a 67 yo man who presents to the emergency room with generalized body pain and progressive weakness. He has multiple comorbidities and has significant history of alcohol abuse and homelessness. No additional symptoms were noted. He denies hematemesis, melena,hematuria, hematochezia, hematuria, nausea, vomiting, acute or localized pain. He was also noted to have cholelithiasis and general surgery was asked to evaluate. Upon exam he has no acute abdominal pain and has a negative roberson's by palpation. Imaging does not show any signs of cholecystitis. Cholecystectomy was discussed with patient but he is opting not to have any surgical intervention at this point. Constitutional: other (weakness), No chills, No diaphoresis Eyes: No visual change ENT: No congestion Respiratory: No cough, No shortness of breath Cardiovascular: No chest pain Gastrointestinal: No constipation, No diarrhea, No nausea, No vomiting Genitourinary: No dysuria, No hematuria Musculoskeletal: No back pain Skin: bruising, No erythema, No skin lesions Neurologic: No dizziness, No focal-weakness, No syncope Psychological: anxiety Past Medical History asthma alcohol abuse chronic back pain with reported spinal fractures alcohol abuse ventral hernia Past Surgical History abdominal surgery (unknown to patient) Social History Alcohol Use: heavy Smoking Status: Current every day smoker Exam/Review of Systems Vital Signs Vitals Vital Signs Date Time Temp Pulse Resp B/P Pulse Ox O2 Delivery O2 Flow Rate FiO2 08/02/17 08:57 2.0 08/02/17 08:56 87 97 Nasal Cannula 08/02/17 08:28 98.2 19 137/89 Intake and Output 08/01/17 08/01/17 08/02/17 15:00 23:00 07:00 Intake Total 1350 ml Balance 1350 ml Exam Constitutional: alert, oriented (x2) Psych: anxiety Head: atraumatic, normocephalic Eyes: nl lids, nl sclera ENMT: mucosa pink and moist, nl nasal mucosa & septum Neck: non-tender, supple Respiratory: clear to auscultation, normal air movement Cardiovascular: nl pulses Gastrointestinal: bowel sounds, non-tender, other (ventral hernia), soft, surgical scars Musculoskeletal: nl extremities to inspection, nl gait and stance Extremities: normal pulses Neurological: No focal weakness, No nl strength Skin: ecchymosis, No rash or lesions Results Result Diagram: 08/02/17 0601 08/01/17 0443 Results 24 hrs Laboratory Tests Test 08/01/17 14:13 08/01/17 15:52 08/01/17 15:53 08/02/17 05:49 Erythrocyte Sedimentation Rate 3 Prothrombin Time 18.9 H Prothrombin Time Ratio 1.5 INR International Normalized Ratio 1.57 Prealbumin 3.6 L Vitamin B12 Level > 1000 H Folate 15.8 Lactic Acid Level 1.4 Lab Scanned Report BLOOD TRANSFUSION Test 08/02/17 06:01 White Blood Count 1.8 L Red Blood Count 3.09 L Hemoglobin 10.0 L Hematocrit 31.7 L Mean Corpuscular Volume 102.6 H Mean Corpuscular Hemoglobin 32.4 Mean Corpuscular Hemoglobin Concent 31.5 L Red Cell Distribution Width 21.1 H Platelet Count 34 #L Mean Platelet Volume 10.9 H Neutrophils % Segmented Neutrophils % (Manual) 53 Lymphocytes % Lymphocytes % (Manual) 25 Monocytes % Monocytes % (Manual) 13 H Eosinophils % Eosinophils % (Manual) 8 H Basophils % Basophils % (Manual) 1 Nucleated Red Blood Cells % 0.0 Neutrophils # Absolute Lymphocytes (Manual) 0.4 L Lymphocytes # Monocytes # Absolute Monocytes (Manual) 0.2 L Eosinophils # Basophils # Basophils # (Manual) 0.0 Nucleated Red Blood Cells # Platelet Estimate SIG DECREASED Giant Platelets 2 H Polychromasia 3+ Poikilocytosis 3+ Anisocytosis 3+ Macrocytosis 3+ Spherocytes 1+ Medications Medications Current Medications Sodium Chloride (NS) 1,000 ml @ 100 mls/hr Q10H IV Last administered on 20:18; Admin Dose 100 MLS/HR; Start 07/31/17 at 11:15 Ondansetron HCl (Zofran Inj) 4 mg Q6H PRN IV NAUSEA AND/OR VOMITING; Start 07/31/17 at 11:30 Acetaminophen (Tylenol Tab) 650 mg Q6H PRN PO PAIN LEVEL 1-3 OR FEVER Last administered on 08/01/17 20:19; Admin Dose 650 MG; Start 07/31/17 at 11:30 Acetaminophen (Tylenol Supp) 650 mg Q6H PRN [place] PAIN LEVEL 1-3 OR FEVER; Start 07/31/17 at 11:30 Morphine Sulfate (morphine) 2 mg Q4H PRN IV SEVERE PAIN LEVEL 7-10 Last administered on 08/02/17 04:11; Admin Dose 2 MG; Start 07/31/17 at 11:30 Docusate Sodium (Colace) 100 mg Q12H PRN PO CONSTIPATION Last administered on 08/02/17 04:11; Admin Dose 100 MG; Start 07/31/17 at 11:30 Famotidine 20 mg 20 mg Q12 PO Last administered on 08/02/17 07:59; Admin Dose 20 MG; Start 07/31/17 at 21:00 Vancomycin HCl 250 ml @ 125 mls/hr Q12H IVPB Last administered on 08/02/17 04 :12; Admin Dose 125 MLS/HR; Start 08/01/17 at 16:00 Levofloxacin/ Dextrose (Levaquin 500mg/ D5W 100 ml (Pmx)) 100 ml @ 100 mls/hr Q24H IVPB Last administered on 08/02/17t 07:59; Admin Dose 100 MLS/HR; Start 08/01/17 at 09:30 Miscellaneous Information (*Rx Drug Level Order Reminder*) VANCOMYCIN TROUGH LEVEL... ONCE ONCE XX ; Start 08/02/17 at 15:00; Stop 08/02/17 at 15:01 JAQUELINE BEAN NP Aug 02, 2017 10:46
[2017-08-02 12:00] LABS: PLATELET COUNT 34 10^3/UL (140-415)
[2017-08-02 12:32] LABS: INR 1.72; PROTIME 20.3 Sec (12.2-14.2); PT RATIO 1.6
[2017-08-02 12:33] LABS: PARTIAL THROMBOPLASTIN TIME 31.5 Sec (25.0-35.0)
--- NOTE | 2017-08-02 12:40 | PN ---
Date/Time of Note Date/Time of Note DATE: 08/02/17 TIME: 12:34 Assessment/Plan VTE Prophylaxis VTE Prophylaxis Intervention: SCD's Lines/Catheters IV [facility]ter [facility]from [facility] Mid Line Urinary Cath still in place: No Assessment/Plan Chief Complaint/Hosp Course Summary Assessment and Plan: Assessment: Hyperbilirubinemia r/o choledocholithiasis vs worsening of liver disease Hematemesis-likely secondary to esophageal varices/Black stools likely due to esophageal varices EGD 08/01/17 Impression: Grade III/IV esophageal varices Post EVL 3 Gastritis Duodenitis Generalized weakness Thrombocytopenia likely secondary to cirrhosis Abnormal LFTs/ Hep C Ab positive vs ETOH Cirrhosis-likely combination of EtOH and hepatitis C Electrolyte imbalance/hypokalemia/replaced History of asthma Chronic back pain Painless abdominal hernia Plan: Continue PPI twice daily Advance diet to full - then advance as tolerated Monitor H&H, transfuse as necessary Consider hematology eval for persistent profound thrombocytopenia MRCP- negative for choledocholithiasis HCV RNA-pending Alpha-fetoprotein 3.51- in normal range Patient seen in collaboration with Dr. Urena Subjective: Course reviewed with nursing staff Patient interviewed and examined All labs, imaging and other results reviewed The patient ok, c/o some midsternal pain, discussed this pain to be expected post banding, continue pain management Will increase diet as tolerated. RNA pending- patient will need to be treated as outpatient pending positive viral load and genotype PHYSICAL EXAMINATION: GENERAL: Disheveled, alert & oriented x 3, in no acute distress SKIN: No lesions, stigmata chronic liver disease, multiple bruises LYMPHATIC: No palpable lymphadenopathy. HEAD: Normocephalic, atraumatic, no tenderness. EYES: Pupils equal reactive to light and accommodation, full extraocular movements, sclera clear, non-icteric, no discharge. EARS/NOSE AND THROAT: Ears normal, nose normal, oropharynx normal, oral membranes well hydrated without lesions. NECK: Supple, no masses, thyroid normal, CHEST: Inspection within normal limits. CARDIOVASCULAR: Heart: Regular rate and rhythm, no murmurs, gallops or rubs. RESPIRATORY: Lungs clear to auscultation and percussion, no wheezing, no rubs GASTROINTESTINAL AND LIVER: Abdomen: Soft, non tenderness, non-painful abd hernia, no masses, no guarding, no rebound tenderness, normoactive bowel sounds. Rectal: Deferred. GENITOURINARY: Male genitalia within normal limits. Problems: Exam/Review of Systems Vital Signs Vitals Vital Signs Date Time Temp Pulse Resp B/P Pulse Ox O2 Delivery O2 Flow Rate FiO2 08/02/17 08:57 2.0 08/02/17 08:56 87 97 Nasal Cannula 08/02/17 08:28 98.2 19 137/89 Intake and Output 08/01/17 08/01/17 08/02/17 14:59 22:59 06:59 Intake Total 1350 ml Balance 1350 ml Results Result Diagram: 08/02/17 1043 08/01/17 0443 Results 24 hrs Laboratory Tests Test 08/01/17 14:13 08/01/17 15:52 08/01/17 15:53 08/02/17 05:49 Erythrocyte Sedimentation Rate 3 Prothrombin Time 18.9 H Prothrombin Time Ratio 1.5 INR International Normalized Ratio 1.57 Prealbumin 3.6 L Vitamin B12 Level > 1000 H Folate 15.8 Lactic Acid Level 1.4 Lab Scanned Report BLOOD TRANSFUSION Test 08/02/17 06:01 08/02/17 10:43 White Blood Count 1.8 L Red Blood Count 3.09 L Hemoglobin 10.0 L Hematocrit 31.7 L Mean Corpuscular Volume 102.6 H Mean Corpuscular Hemoglobin 32.4 Mean Corpuscular Hemoglobin Concent 31.5 L Red Cell Distribution Width 21.1 H Platelet Count 34 #L 34 L Mean Platelet Volume 10.9 H Neutrophils % Segmented Neutrophils % (Manual) 53 Lymphocytes % Lymphocytes % (Manual) 25 Monocytes % Monocytes % (Manual) 13 H Eosinophils % Eosinophils % (Manual) 8 H Basophils % Basophils % (Manual) 1 Nucleated Red Blood Cells % 0.0 Neutrophils # Absolute Lymphocytes (Manual) 0.4 L Lymphocytes # Monocytes # Absolute Monocytes (Manual) 0.2 L Eosinophils # Basophils # Basophils # (Manual) 0.0 Nucleated Red Blood Cells # Platelet Estimate SIG DECREASED Giant Platelets 2 H Polychromasia 3+ Poikilocytosis 3+ Anisocytosis 3+ Macrocytosis 3+ Spherocytes 1+ Prothrombin Time 20.3 H Prothrombin Time Ratio 1.6 INR International Normalized Ratio 1.72 Activated Partial Thromboplast Time 31.5 Thrombin Time Pending Fibrinogen 189.0 L Plasma Fibrin Degradation Products Pending D-Dimer Pending Lactate Dehydrogenase 554 Medications Medications Current Medications Sodium Chloride (NS) 1,000 ml @ 100 mls/hr Q10H IV Last administered on 20:18; Admin Dose 100 MLS/HR; Start 07/31/17 at 11:15 Ondansetron HCl (Zofran Inj) 4 mg Q6H PRN IV NAUSEA AND/OR VOMITING; Start 07/31/17 at 11:30 Acetaminophen (Tylenol Tab) 650 mg Q6H PRN PO PAIN LEVEL 1-3 OR FEVER Last administered on 08/01/17 20:19; Admin Dose 650 MG; Start 07/31/17 at 11:30 Acetaminophen (Tylenol Supp) 650 mg Q6H PRN [place] PAIN LEVEL 1-3 OR FEVER; Start 07/31/17 at 11:30 Morphine Sulfate (morphine) 2 mg Q4H PRN IV SEVERE PAIN LEVEL 7-10 Last administered on 08/02/17 12:25; Admin Dose 2 MG; Start 07/31/17 at 11:30 Docusate Sodium (Colace) 100 mg Q12H PRN PO CONSTIPATION Last administered on 08/02/17 04:11; Admin Dose 100 MG; Start 07/31/17 at 11:30 Famotidine 20 mg 20 mg Q12 PO Last administered on 08/02/17 07:59; Admin Dose 20 MG; Start 07/31/17 at 21:00 Vancomycin HCl 250 ml @ 125 mls/hr Q12H IVPB Last administered on 08/02/17 04 :12; Admin Dose 125 MLS/HR; Start 08/01/17 at 16:00 Levofloxacin/ Dextrose (Levaquin 500mg/ D5W 100 ml (Pmx)) 100 ml @ 100 mls/hr Q24H IVPB Last administered on 08/02/17 07:59; Admin Dose 100 MLS/HR; Start 08/01/17 at 09:30 Miscellaneous Information (*Rx Drug Level Order Reminder*) VANCOMYCIN TROUGH LEVEL... ONCE ONCE XX ; Start 08/02/17 at 15:00; Stop 08/02/17 at 15:01 AUGIE WILLIAMSON Aug 02, 2017 12:40
[2017-08-02 13:10] LABS: THROMBIN TIME 15.3 SEC (13.8-19.1)
[2017-08-02 13:54] VITALS: BP 132/65; RESP 19
[2017-08-02 14:23] LABS: FIBRIN SPLIT PRODUCT <10 ug/ml (<10)
--- NOTE | 2017-08-02 14:43 | PN ---
Date/Time of Note Date/Time of Note DATE: 08/02/17 TIME: 14:38 Assessment/Plan VTE Prophylaxis VTE Prophylaxis Intervention: ambulation Lines/Catheters IV Catheter Type (from Nrs): Mid Line Urinary Cath still in place: No Assessment/Plan Chief Complaint/Hosp Course 1. Generalized weakness/progressive debility. -Follow-up with lumbar spine MRI to rule out acute fractures. -PT eval and treatment. 2. Alcoholic and Hep C Liver cirrhosis. -Hyperbilirubinemia portends a poor prognosis - Recommend outpatient Student Success Coach follow-up if patient is amenable. -Conservative medical management/Lifestyle modification/ Cessation of alcohol abuse. 3. Hepatitis C. -F/u RNA PCR studies to detect current infection -Defer GI on further recs. 4. Transaminase elevation with hyperbilirubinemia secondary to #2 -Monitor 5. SIRS with Leukopenia- Needs to rule out sepsis. Blood culture one set growing alphahemolytic Streptococcus. -Continue antibiotics and follow-up final cultures 6. Hematemesis with Esophageal varices, status post EGD with banding on 2016. Follow-up with GI recommendation and diet advancement.- 7. Thrombocytopenia with concomitant Leukopenia, most likely secondary to splenomegaly with splenic margination. Hematological conditions remains in differential but is less likely given the normal AFP/Monospot. Follow-up peripheral smear studies. -Status post plateletpheresis. Platelets remains at baseline without further drops. -Heme consult with requested- will follow recs. 8.Anemia, multifactorial with acute and chronic GI blood loss, alcohol toxicity and spllenomegaly -Stable HH.Monitor closely. 9.Stigmata of Portal HTN/Splenomegaly with liver cirrhosis 10. History of asthma. Controlled. -As needed bronchodilators. 11. Chronic non-reducible Ventral hernia of right abdominal wall -At this time, patient does not want to have any further follow-up on this. 12. Chronic back pain with reported history of spinal fractures. -Continue pain medications as needed. Follow-up with MRI. 13.Cholelithiasis. MRCP negative for choledocho. -Surgery eval appreciated. Recommended eventual cholecystectomy as outpatient. 14. Homelessness. -mud worker consult has been requested. 15. Alcohol abuse. -Cessation advised. DVT prophylaxis: SCDs Plan: Continue current management. F/u cultures. Case management for discharge planning to extended care facility. Patient was seen in collaboration with Dr. Sultana. Problems: Subjective 24 Hr Interval Summary Free Text/Dictation Patient is more awake. He has been tolerating diet. He has been able to walk a few steps with PT assist. Exam/Review of Systems Vital Signs Vitals Vital Signs Date Time Temp Pulse Resp B/P Pulse Ox O2 Delivery O2 Flow Rate FiO2 08/02/17 13:54 98.4 100 19 132/65 97 08/02/17 13:28 Nasal Cannula 2.0 Intake and Output 08/01/17 08/01/17 08/02/17 15:00 23:00 07:00 Intake Total 1350 ml Balance 1350 ml Exam General: Chronically ill looking male, not in any acute distress . HEENT: Normocephalic, Atraumatic, No laceration or hematoma; Eyes: PEERL, Conjunctiva clear, Anicteric sclera Neck: Supple without any lymphadenopathy, nontender, no JVD, no carotid bruits, trachea midline, no thyromegaly Cardiac: S1, S2 auscultated, regular rhythm and rate, no mumurs or gallop Pulmonary: Normal respiratory effort. Chest clear to auscultation bilaterally, no adventitious breath sounds GI: Huge mass/hernia to right abdomen. Soft, non tender, non- distended, no masses, no rebound tenderness or guarding. Bowel sounds active on all four quadrants Genitourinary: Deferred Extremities: Generalized weakness to lower extremities. Denies any numbness/ tingling. No cyanosis, clubbing, or edema. Pulses [2+] bilaterally. No focal weakness appreciated. Neurologic: Awake and oriented 3. Slightly confused. Follows simple commands. Skin: Clean,dry, and intact. No ecchymosis, no rashes, or lesions Results Result Diagram: 08/02/17 1043 08/01/17 0443 Results 24 hrs Laboratory Tests Test 08/01/17 15:52 08/01/17 15:53 08/02/17 05:49 08/02/17 06:01 Prothrombin Time 18.9 H Prothrombin Time Ratio 1.5 INR International Normalized Ratio 1.57 Prealbumin 3.6 L Vitamin B12 Level > 1000 H Folate 15.8 Lactic Acid Level 1.4 Lab Scanned Report BLOOD TRANSFUSION White Blood Count 1.8 L Red Blood Count 3.09 L Hemoglobin 10.0 L Hematocrit 31.7 L Mean Corpuscular Volume 102.6 H Mean Corpuscular Hemoglobin 32.4 Mean Corpuscular Hemoglobin Concent 31.5 L Red Cell Distribution Width 21.1 H Platelet Count 34 #L Mean Platelet Volume 10.9 H Neutrophils % Segmented Neutrophils % (Manual) 53 Lymphocytes % Lymphocytes % (Manual) 25 Monocytes % Monocytes % (Manual) 13 H Eosinophils % Eosinophils % (Manual) 8 H Basophils % Basophils % (Manual) 1 Nucleated Red Blood Cells % 0.0 Neutrophils # Absolute Lymphocytes (Manual) 0.4 L Lymphocytes # Monocytes # Absolute Monocytes (Manual) 0.2 L Eosinophils # Basophils # Basophils # (Manual) 0.0 Nucleated Red Blood Cells # Platelet Estimate SIG DECREASED Giant Platelets 2 H Polychromasia 3+ Poikilocytosis 3+ Anisocytosis 3+ Macrocytosis 3+ Spherocytes 1+ Test 08/02/17 10:43 Platelet Count 34 L Prothrombin Time 20.3 H Prothrombin Time Ratio 1.6 INR International Normalized Ratio 1.72 Activated Partial Thromboplast Time 31.5 Thrombin Time 15.3 Fibrinogen 189.0 L Plasma Fibrin Degradation Products <10 D-Dimer 2653.90 H D-Dimer Comment Lactate Dehydrogenase 554 Medications Medications Current Medications Sodium Chloride (NS) 1,000 ml @ 100 mls/hr Q10H IV Last administered on 20:18; Admin Dose 100 MLS/HR; Start 07/31/17 at 11:15 Ondansetron HCl (Zofran Inj) 4 mg Q6H PRN IV NAUSEA AND/OR VOMITING; Start 07/31/17 at 11:30 Acetaminophen (Tylenol Tab) 650 mg Q6H PRN PO PAIN LEVEL 1-3 OR FEVER Last administered on 08/01/17 20:19; Admin Dose 650 MG; Start 07/31/17 at 11:30 Acetaminophen (Tylenol Supp) 650 mg Q6H PRN [place] PAIN LEVEL 1-3 OR FEVER; Start 07/31/17 at 11:30 Morphine Sulfate (morphine) 2 mg Q4H PRN IV SEVERE PAIN LEVEL 7-10 Last administered on 08/02/17 12:25; Admin Dose 2 MG; Start 07/31/17 at 11:30 Docusate Sodium (Colace) 100 mg Q12H PRN PO CONSTIPATION Last administered on 08/02/17 04:11; Admin Dose 100 MG; Start 07/31/17 at 11:30 Famotidine 20 mg 20 mg Q12 PO Last administered on 08/02/17 07:59; Admin Dose 20 MG; Start 07/31/17 at 21:00 Vancomycin HCl 250 ml @ 125 mls/hr Q12H IVPB Last administered on 08/02/17 04 :12; Admin Dose 125 MLS/HR; Start 08/01/17 at 16:00 Levofloxacin/ Dextrose (Levaquin 500mg/ D5W 100 ml (Pmx)) 100 ml @ 100 mls/hr Q24H IVPB Last administered on 08/02/17 07:59; Admin Dose 100 MLS/HR; Start 08/01/17 at 09:30 Miscellaneous Information (*Rx Drug Level Order Reminder*) VANCOMYCIN TROUGH LEVEL... ONCE ONCE XX ; Start 08/02/17 at 15:00; Stop 08/02/17 at 15:01 CONOR CARDONA NP Aug 02, 2017 14:43
--- NOTE | 2017-08-02 19:49 | CONS ---
Date/Time of Note Date/Time of Note DATE: 08/02/17 TIME: 19:41 Assessment/Plan Assessment/Plan Chief Complaint/Hosp Course 67 yo with #Pancytopenia #Neutropenia #Bacteremia #Cirrhosis from Hep C and EtOH -Peripheral smear was reviewed and there is no evidence of blasts of myelodysplastic disorder. This suggests the cause of this pancytopenia is from his severe cirrhosis from his Etoh abuse and chronic hep c -Given his platelet count is greater than 20K I would not transfuse not would I initiate any therapy at this time. If his platelets drop to below 15K we can consider Promacta or NPLATE at that time to treat any concomitant ITP that may exist -Patients neutropenia is likely acute on chronic. His baseline WBC count is already low from his underlying cirrhosis but this is now worse from the anabiotics he is on. Given we are treating bacteremia, we can start Neupogen at this time, until he is free from infection -continue to monitor LFTs. Pt is unlikely a liver transplant candidate given he is still abusing ETOH. - Problems: Consultation Date/Type/Reason Admit Date/Time 07/30/17 Date of Consultation: Aug 02, 2017 Type of Consultation: Hematology Reason for Consultation pancytopenia Referring Provider: CONOR CARDONA NP Hx of Present Illness 67-year-old homeless male with alcoholic and Hep C cirrhosis who presented with chronic back pain from spinal fractures and generalized body pain. In the ER patient was found to be pancytopenia with an initial WBC # of 3600, platelet 26, 000,and Hg of 10. We have been consulted given patient's severe pancytopenia. Pt denies spontaneous bleeding. He states his last drink was 3days prior to admission. Constitutional: other (weakness), No chills, No diaphoresis Eyes: No visual change ENT: No congestion Respiratory: No cough, No shortness of breath Cardiovascular: No chest pain Gastrointestinal: No constipation, No diarrhea, No nausea, No vomiting Genitourinary: No dysuria, No hematuria Musculoskeletal: No back pain Skin: bruising, No erythema, No skin lesions Neurologic: No dizziness, No focal-weakness, No syncope Psychological: anxiety Past Medical History asthma, alcohol abuse, chronic back pain with reported spinal fractures, alcohol abuse, abdominal hernia Family History Significant Family History: no pertinent family hx Social History Alcohol Use: heavy Smoking Status: Current every day smoker Drug Use: none Exam/Review of Systems Vital Signs Vitals Vital Signs Date Time Temp Pulse Resp B/P Pulse Ox O2 Delivery O2 Flow Rate FiO2 08/02/17 16:34 88 18 92 Nasal Cannula 2.0 08/02/17 13:54 98.4 132/65 Intake and Output 08/01/17 08/01/17 08/02/17 15:00 23:00 07:00 Intake Total 1350 ml Balance 1350 ml Exam Constitutional: distress, frail Psych: anxiety, confusion, depression Head: normocephalic Eyes: nl conjunctiva ENMT: nl external ears & nose Neck: non-tender, supple Respiratory: clear to auscultation, normal air movement Cardiovascular: regular rate and rhythm Gastrointestinal: soft Musculoskeletal: nl extremities to inspection, nl gait and stance Extremities: normal pulses Results Result Diagram: 08/02/17 1043 08/01/17 0443 Results 24 hrs Laboratory Tests Test 08/02/17 05:49 08/02/17 06:01 08/02/17 10:43 08/02/17 16:01 Lab Scanned Report BLOOD TRANSFUSION White Blood Count 1.8 L Red Blood Count 3.09 L Hemoglobin 10.0 L Hematocrit 31.7 L Mean Corpuscular Volume 102.6 H Mean Corpuscular Hemoglobin 32.4 Mean Corpuscular Hemoglobin Concent 31.5 L Red Cell Distribution Width 21.1 H Platelet Count 34 #L 34 L Mean Platelet Volume 10.9 H Neutrophils % Segmented Neutrophils % (Manual) 53 Lymphocytes % Lymphocytes % (Manual) 25 Monocytes % Monocytes % (Manual) 13 H Eosinophils % Eosinophils % (Manual) 8 H Basophils % Basophils % (Manual) 1 Nucleated Red Blood Cells % 0.0 Neutrophils # Absolute Lymphocytes (Manual) 0.4 L Lymphocytes # Monocytes # Absolute Monocytes (Manual) 0.2 L Eosinophils # Basophils # Basophils # (Manual) 0.0 Nucleated Red Blood Cells # Pathologist Review (Hematology) Platelet Estimate SIG DECREASED Giant Platelets 2 H Polychromasia 3+ Poikilocytosis 3+ Anisocytosis 3+ Macrocytosis 3+ Spherocytes 1+ Path Consult Signing Pathologist PAULA HARRELL MD Prothrombin Time 20.3 H Prothrombin Time Ratio 1.6 INR International Normalized Ratio 1.72 Activated Partial Thromboplast Time 31.5 Thrombin Time 15.3 Fibrinogen 189.0 L Plasma Fibrin Degradation Products <10 D-Dimer 2653.90 H D-Dimer Comment Lactate Dehydrogenase 554 Vancomycin Level Trough 8.6 L Medications Medications Current Medications Sodium Chloride (NS) 1,000 ml @ 100 mls/hr Q10H IV Last administered on 16:56; Admin Dose 100 MLS/HR; Start 07/31/17 at 11:15 Ondansetron HCl (Zofran Inj) 4 mg Q6H PRN IV NAUSEA AND/OR VOMITING; Start 07/31/17 at 11:30 Acetaminophen (Tylenol Tab) 650 mg Q6H PRN PO PAIN LEVEL 1-3 OR FEVER Last administered on 08/01/17 20:19; Admin Dose 650 MG; Start 07/31/17 at 11:30 Acetaminophen (Tylenol Supp) 650 mg Q6H PRN [place] PAIN LEVEL 1-3 OR FEVER; Start 07/31/17 at 11:30 Morphine Sulfate (morphine) 2 mg Q4H PRN IV SEVERE PAIN LEVEL 7-10 Last administered on 08/02/17 16:56; Admin Dose 2 MG; Start 07/31/17 at 11:30 Docusate Sodium (Colace) 100 mg Q12H PRN PO CONSTIPATION Last administered on 08/02/17 04:11; Admin Dose 100 MG; Start 07/31/17 at 11:30 Famotidine 20 mg 20 mg Q12 PO Last administered on 08/02/17 07:59; Admin Dose 20 MG; Start 07/31/17 at 21:00 Levofloxacin/ Dextrose 100 ml @ 100 mls/hr Q24H IVPB Last administered on 08/02 07:59; Admin Dose 100 MLS/HR; Start 08/01/17 at 09:30 Vancomycin HCl/ Sodium Chloride (Vancocin/NS) 250 ml @ 83.333 mls/ hr Q12H IVPB ; Start 08/03/17 at 06:00 KATHY DEGROOT M.D. Aug 02, 2017 19:49
[2017-08-02 21:18] VITALS: BP 134/80; RESP 16
[2017-08-02] MEDS: ACETAMINOPHEN 325 MG TAB PO PRN (21:29)
[2017-08-03 02:57] VITALS: BP 93/51; RESP 16
[2017-08-03] MEDS: SOD CHLORIDE 0.9% 1,000 ML IV SCH ×3 (02:58→12:58)
[2017-08-03] MEDS ORDERED: VANCOMYCIN 1.5 GM in SOD CHLORIDE 0.9% 250 ML IVPB SCH (06:00)
[2017-08-03 06:39] LABS: ABNORMAL IP MESSAGE 1; HEMATOCRIT 28.8 % (42.0-52.0); HEMOGLOBIN 9.3 g/dl (14.0-18.0); MEAN CORPUSCULAR HEMOGLOBIN 33.1 pg (29.0-33.0); MEAN CORPUSCULAR HGB CONC 32.3 g/dl (32.0-37.0); MEAN CORPUSCULAR VOLUME 102.5 fl (82.0-101.0); MEAN PLATELET VOLUME 11.9 fl (7.4-10.4); PLATELET COUNT 36 10^3/UL (140-415); POSITIVE DIFF @See below; RED BLOOD COUNT 2.81 10^6/ul (4.70-6.10); RED CELL DISTRIBUTION WIDTH 20.1 % (11.5-14.5); WHITE BLOOD COUNT 1.7 10^3/ul (4.8-10.8)
[2017-08-03 07:09] LABS: CALCIUM 7.6 mg/dl (8.4-10.2); CREATININE 0.57 mg/dl (0.61-1.24); POTASSIUM 3.3 mmol/L (3.5-5.1)
[2017-08-03 08:00] VITALS: BP 122/74; RESP 18
[2017-08-03 08:08] LABS: ANISOCYTOSIS 2+ (0-0); BASOPHILS % (M) 1 % (0-2); EOSINOPHILS % (M) 7 % (0-7); GIANT THROMBO% (M) 2 % (0-0); MONOCYTES % (M) 7 % (0-11); PLATELET ESTIMATE DECREASED; POLYCHROMASIA 2+ (0-0); PROMYELOCYTES % (M) 2 % (0-0)
[2017-08-03] MEDS: ALBUTEROL/IPRATROPIUM (NEB) 3 ML AMP HHN SCH ×4 (08:30→20:35)
[2017-08-03] MEDS: morphine 2 MG INJ IV PRN ×3 (08:38→23:25)
[2017-08-03] MEDS: DOCUSATE SODIUM 100 MG CAP PO PRN (08:42)
[2017-08-03] MEDS: FAMOTIDINE 20 MG TAB PO SCH ×2 (08:42→20:55)
[2017-08-03] MEDS: LEVOFLOXACIN 500MG/D5W (PMX) 100 ML IVPB SCH (09:41)
--- NOTE | 2017-08-03 10:44 | PN ---
Date/Time of Note Date/Time of Note DATE: 08/03/17 TIME: 10:39 Assessment/Plan Lines/Catheters IV Catheter Type (from [facility]): Mid Line [place] in Place (from [facility]): No Assessment/Plan Chief Complaint/Hosp Course 1. Cholelithiasis without cholecystitis/choledocholithiasis: No pain, negative roberson's; discussed cholecystectomy; refusing any intervention at this time -no emergent surgical intervention needed at this time; eventual lap reginald, can be done outpatient -follow up with pcp (to find pcp) 2. Generalized weakness: no focal weakness -further workup per medical team 3. Transaminitis; elevated bili; AST greater elevation that alk phos > likely 2/ 2 hepatocellular disease (hep c hx) more than biliary tree obstruction; improving; -trend 4. Pancytopenia: likely 2/2 liver dx +/- other; -per onc consult- neupogen per onc recs for thrombocytopenia -supportive 5. Macrocytic anemia with Grade III/IV esophageal varices (Post EVL 3), Gastritis, Duodenitis -ppi -bp control -monitor and transfuse as needed 6. History of asthma -supportive 7. Ventral hernia : no pain, reducible -eventual corrective surgery 8. Alcohol abuse -strongly advice cessation -?outpatient rehab program 9. Hepatitis C -management per hepatology/gi Thank you. Patient seen and examined in collaboration with Dr. Lyle Lenz. Problems: Subjective 24 Hr Interval Summary Feels ok. No c/o acute abdominal pain/discomfort at this time. Tolerating diet. No fevers, chills, sob, congested cough, cp, palpitations, curtis, dizziness, n/v/d/ dysuria. Exam/Review of Systems Vital Signs Vitals Vital Signs Date Time Temp Pulse Resp B/P Pulse Ox O2 Delivery O2 Flow Rate FiO2 08/03/17 08:31 99 18 96 21 08/03/17 08:00 98.6 122/74 08/02/17 22:45 2.0 08/02/17 16:34 Nasal Cannula Intake and Output 08/02/17 08/02/17 08/03/17 14:59 22:59 06:59 Intake Total 100 ml 2450 ml 2123.333 ml Balance 100 ml 2450 ml 2123.333 ml Exam Free Text/Dictation Constitutional: alert, oriented (x2) Psych: anxiety Head: atraumatic, normocephalic Eyes: nl lids, nl sclera ENMT: mucosa pink and moist, nl nasal mucosa & septum Neck: non-tender, supple Respiratory: clear to auscultation, normal air movement Cardiovascular: nl pulses Gastrointestinal: bowel sounds, non-tender, other (ventral hernia), soft, surgical scars Musculoskeletal: nl extremities to inspection, nl gait and stance Extremities: normal pulses Neurological: No focal weakness, No nl strength Skin: ecchymosis, No rash or lesions Results Result Diagram: 08/03/17 0527 08/03/17 0527 JAQUELINE BEAN NP Aug 03, 2017 10:44
[2017-08-03] MEDS ORDERED: BISACODYL (EC) 5 MG TAB PO PRN (11:30)
[2017-08-03] MEDS ORDERED: POTASSIUM CHLORIDE (SR) 20 MEQ TAB PO STA (11:31)
--- NOTE | 2017-08-03 11:44 | PN ---
Date/Time of Note Date/Time of Note DATE: 08/03/17 TIME: 11:37 Assessment/Plan VTE Prophylaxis VTE Prophylaxis Intervention: ambulation Lines/Catheters IV Catheter Type (from Nrsg): Mid Line Urinary Cath still in place: No Assessment/Plan Chief Complaint/Hosp Course 1. Debility with chronic L1 Lumbar spinal fractures with severe multilevel spinal canal stenosis of L2-L3-L4 -Conservative management as patient does not wish to pursue any aggressive management including NS -Pain control, PT eval and treatment. 2. Alcoholic and Hep C Liver cirrhosis. -Hyperbilirubinemia portends a poor prognosis - Recommend outpatient Political Advisor follow-up if patient is amenable. -Conservative medical management/Lifestyle modification/ Cessation of alcohol abuse. 3. Hepatitis C with high viral load detected with PCR -Defer GI on further recs. 4. Transaminase elevation with hyperbilirubinemia secondary to #2 -Monitor 5. Alphahemolytic Streptococcus likely contamination vs 2/2 cytopenia. No evidence of sepsis. Repeat CS negative. -Deescalate abx to 5 day Keflex. 6. Hematemesis with Esophageal varices, status post EGD with banding on 2016.Stable. -Continue PPIs. Diet as tolerated. 7. Thrombocytopenia with concomitant Leukopenia, most likely secondary to splenomegaly with splenic margination. Hematological conditions remains in differential but is less likely given the normal AFP/Monospot. Follow-up peripheral smear studies. -Status post plateletpheresis. Platelets remains at baseline without further drops. -F/u with heme recs. 8.Anemia, multifactorial with acute and chronic GI blood loss, alcohol toxicity and spllenomegaly -Stable HH.Monitor closely. 9.Stigmata of Portal HTN/Splenomegaly with liver cirrhosis 10. History of asthma. Controlled. -As needed bronchodilators. 11. Chronic non-reducible Ventral hernia of right abdominal wall -At this time, patient does not want to have any further follow-up on this. 12. Chronic back pain with reported history of spinal fractures. -Continue pain medications as needed. Follow-up with MRI. 13.Cholelithiasis. MRCP negative for choledocho. -Surgery eval appreciated. Recommended eventual cholecystectomy as outpatient. 14. Homelessness. -toll test desk worker consult has been requested. 15. Alcohol abuse. -Cessation advised. PLAN: F/u with GI recommendation on Hep C management.F/u with Heme regarding cytopenia. Case management for arranging Board and care with HHPT once medically cleared from consultants. DVT prophylaxis: SCDs Plan: Continue current management. F/u cultures. Case management for discharge planning to extended care facility. Patient was seen in collaboration with Dr. Sultana. Problems: Subjective 24 Hr Interval Summary Free Text/Dictation Complaints of constipation.otherwise no acute distress. Exam/Review of Systems Vital Signs Vitals Vital Signs Date Time Temp Pulse Resp B/P Pulse Ox O2 Delivery O2 Flow Rate FiO2 08/03/17 08:31 99 18 96 21 08/03/17 08:00 98.6 122/74 08/02/17 22:45 2.0 08/02/17 16:34 Nasal Cannula Intake and Output 08/02/17 08/02/17 08/03/17 14:59 22:59 06:59 Intake Total 100 ml 2450 ml 2123.333 ml Balance 100 ml 2450 ml 2123.333 ml Exam General: Chronically ill looking male, not in any acute distress . HEENT: Normocephalic, Atraumatic, No laceration or hematoma; Eyes: PEERL, Conjunctiva clear, Anicteric sclera Neck: Supple without any lymphadenopathy, nontender, no JVD, no carotid bruits, trachea midline, no thyromegaly Cardiac: S1, S2 auscultated, regular rhythm and rate, no mumurs or gallop Pulmonary: Normal respiratory effort. Chest clear to auscultation bilaterally, no adventitious breath sounds GI: Huge mass/hernia to right abdomen. Soft, non tender, non- distended, no masses, no rebound tenderness or guarding. Bowel sounds active on all four quadrants Genitourinary: Deferred Extremities: Generalized weakness to lower extremities. Denies any numbness/ tingling. No cyanosis, clubbing, or edema. Pulses [2+] bilaterally. No focal weakness appreciated. Neurologic: Awake and oriented 3. Slightly confused. Follows simple commands. Skin: Clean,dry, and intact. No ecchymosis, no rashes, or lesions Results Result Diagram: 08/03/1727 08/03/1727 Results 24 hrs Laboratory Tests Test 08/02/17 16:01 08/03/17 05:27 08/03/17 09:33 Vancomycin Level Trough 8.6 L White Blood Count 1.7 L Red Blood Count 2.81 L Hemoglobin 9.3 L Hematocrit 28.8 L Mean Corpuscular Volume 102.5 H Mean Corpuscular Hemoglobin 33.1 H Mean Corpuscular Hemoglobin Concent 32.3 Red Cell Distribution Width 20.1 H Platelet Count 36 L Mean Platelet Volume 11.9 H Neutrophils % Segmented Neutrophils % (Manual) 52 Lymphocytes % Lymphocytes % (Manual) 31 Monocytes % Monocytes % (Manual) 7 Eosinophils % Eosinophils % (Manual) 7 Basophils % Basophils % (Manual) 1 Promyelocytes % (Manual) 2 H Nucleated Red Blood Cells % 0.0 Neutrophils # Absolute Lymphocytes (Manual) 0.5 L Lymphocytes # Monocytes # Absolute Monocytes (Manual) 0.1 L Eosinophils # Basophils # Basophils # (Manual) 0.0 Promyelocytes # 0.0 Nucleated Red Blood Cells # Platelet Estimate DECREASED Giant Platelets 2 H Polychromasia 2+ Anisocytosis 2+ Macrocytosis 2+ Sodium Level 138 Potassium Level 3.3 L Chloride Level 110 Carbon Dioxide Level 23 Anion Gap 8 Blood Urea Nitrogen 11 Creatinine 0.57 L Glucose Level 89 Calcium Level 7.6 L Lab Scanned Report REFERENCE LAB Medications Medications Current Medications Sodium Chloride (NS) 1,000 ml @ 100 mls/hr Q10H IV Last administered on 09:43; Admin Dose 100 MLS/HR; Start 07/31/17 at 11:15 Ondansetron HCl (Zofran Inj) 4 mg Q6H PRN IV NAUSEA AND/OR VOMITING; Start 07/31/17 at 11:30 Acetaminophen (Tylenol Tab) 650 mg Q6H PRN PO PAIN LEVEL 1-3 OR FEVER Last administered on 08/02/17 21:29; Admin Dose 650 MG; Start 07/31/17 at 11:30 Acetaminophen (Tylenol Supp) 650 mg Q6H PRN [place] PAIN LEVEL 1-3 OR FEVER; Start 07/31/17 at 11:30 Morphine Sulfate (morphine) 2 mg Q4H PRN IV SEVERE PAIN LEVEL 7-10 Last administered on 08/03/17 08:38; Admin Dose 2 MG; Start 07/31/17 at 11:30 Docusate Sodium (Colace) 100 mg Q12H PRN PO CONSTIPATION Last administered on 08/03/17 08:42; Admin Dose 100 MG; Start 07/31/17 at 11:30 Famotidine 20 mg 20 mg Q12 PO Last administered on 08/03/17 08:42; Admin Dose 20 MG; Start 07/31/17 at 21:00 Levofloxacin/ Dextrose 100 ml @ 100 mls/hr Q24H IVPB Last administered on 09:41; Admin Dose 100 MLS/HR; Start 08/01/17 at 09:30 Vancomycin HCl/ Sodium Chloride (Vancocin/NS) 250 ml @ 83.333 mls/ hr Q12H IVPB Last administered on 08/03/17 05:50; Admin Dose 83.333 MLS/HR; Start at 06:00 CONOR CARDONA NP Aug 03, 2017 11:44
--- NOTE | 2017-08-03 11:54 | CONS ---
Date/Time of Note Date/Time of Note DATE: 08/03/17 TIME: 11:52 Assessment/Plan Assessment/Plan Chief Complaint/Hosp Course Assessment: Hyperbilirubinemia r/o choledocholithiasis vs worsening of liver disease Hematemesis-likely secondary to esophageal varices/Black stools likely due to esophageal varices EGD 08/01/17 Impression: Grade III/IV esophageal varices Post EVL 3 Gastritis Duodenitis Generalized weakness Thrombocytopenia likely secondary to cirrhosis Abnormal LFTs/ Hep C Ab positive vs ETOH Cirrhosis-likely combination of EtOH and hepatitis C Electrolyte imbalance/hypokalemia/replaced History of asthma Chronic back pain Painless abdominal hernia Plan: Continue PPI twice daily low salt diet Monitor H&H, transfuse as necessary hematology eval for persistent profound thrombocytopenia MRCP- negative for choledocholithiasis HCV RNA-pending Alpha-fetoprotein 3.51- in normal range continue supportive care Problems: Consultation Date/Type/Reason Admit Date/Time Jul 31, 2017 at 10:20 Initial Consult Date 08/02/17 Type of Consultation: GI Referring Provider: CONOR CARDONA NP 24 HR Interval Summary Free Text/Dictation tolerating po, no n/v, no hematemesis, no melena Constitutional: improved Exam/Review of Systems Vital Signs Vitals Vital Signs Date Time Temp Pulse Resp B/P Pulse Ox O2 Delivery O2 Flow Rate FiO2 08/03/17 08:31 99 18 96 21 08/03/17 08:00 98.6 122/74 08/02/17 22:45 2.0 08/02/17 16:34 Nasal Cannula Intake and Output 08/02/17 08/02/17 08/03/17 15:00 23:00 07:00 Intake Total 100 ml 2450 ml 2123.333 ml Balance 100 ml 2450 ml 2123.333 ml Exam Constitutional: alert, oriented, well developed Psych: nl mood/affect, no complaints Head: atraumatic, normocephalic Eyes: EOMI, nl conjunctiva, nl lids ENMT: nl external ears & nose, nl lips & teeth, nl nasal mucosa & septum Neck: non-tender, supple Respiratory: clear to auscultation, normal air movement Cardiovascular: nl pulses, regular rate and rhythm Gastrointestinal: bowel sounds, non-tender, soft Results Result Diagram: 08/03/17 0527 08/03/17 0527 Results 24 hrs Laboratory Tests Test 08/02/17 16:01 08/03/17 05:27 08/03/17 09:33 Vancomycin Level Trough 8.6 L White Blood Count 1.7 L Red Blood Count 2.81 L Hemoglobin 9.3 L Hematocrit 28.8 L Mean Corpuscular Volume 102.5 H Mean Corpuscular Hemoglobin 33.1 H Mean Corpuscular Hemoglobin Concent 32.3 Red Cell Distribution Width 20.1 H Platelet Count 36 L Mean Platelet Volume 11.9 H Neutrophils % Segmented Neutrophils % (Manual) 52 Lymphocytes % Lymphocytes % (Manual) 31 Monocytes % Monocytes % (Manual) 7 Eosinophils % Eosinophils % (Manual) 7 Basophils % Basophils % (Manual) 1 Promyelocytes % (Manual) 2 H Nucleated Red Blood Cells % 0.0 Neutrophils # Absolute Lymphocytes (Manual) 0.5 L Lymphocytes # Monocytes # Absolute Monocytes (Manual) 0.1 L Eosinophils # Basophils # Basophils # (Manual) 0.0 Promyelocytes # 0.0 Nucleated Red Blood Cells # Platelet Estimate DECREASED Giant Platelets 2 H Polychromasia 2+ Anisocytosis 2+ Macrocytosis 2+ Sodium Level 138 Potassium Level 3.3 L Chloride Level 110 Carbon Dioxide Level 23 Anion Gap 8 Blood Urea Nitrogen 11 Creatinine 0.57 L Glucose Level 89 Calcium Level 7.6 L Lab Scanned Report REFERENCE LAB Medications Medications Current Medications Sodium Chloride (NS) 1,000 ml @ 100 mls/hr Q10H IV Last administered on 09:43; Admin Dose 100 MLS/HR; Start 07/31/17 at 11:15 Ondansetron HCl (Zofran Inj) 4 mg Q6H PRN IV NAUSEA AND/OR VOMITING; Start 07/31/17 at 11:30 Acetaminophen (Tylenol Tab) 650 mg Q6H PRN PO PAIN LEVEL 1-3 OR FEVER Last administered on 08/02/17 21:29; Admin Dose 650 MG; Start 07/31/17 at 11:30 Acetaminophen (Tylenol Supp) 650 mg Q6H PRN [place] PAIN LEVEL 1-3 OR FEVER; Start 07/31/17 at 11:30 Morphine Sulfate (morphine) 2 mg Q4H PRN IV SEVERE PAIN LEVEL 7-10 Last administered on 08/03/17 08:38; Admin Dose 2 MG; Start 07/31/17 at 11:30 Famotidine (Pepcid) 20 mg Q12 PO Last administered on 08/03/17t 08:42; Admin Dose 20 MG; Start 07/31/17 at 21:00 Docusate Sodium (Colace) 100 mg Q12 PO ; Start 08/03/17 at 21:00 Bisacodyl (Dulcolax) 10 mg DAILY PRN PO CONSTIPATION; Start 08/03/17 at 11:30 Cephalexin (Keflex) 500 mg Q8 PO ; Start 08/03/17 at 14:00; Stop 08/08/17 at 13:59 LADY CARTER MD Aug 03, 2017 11:54
[2017-08-03 14:00] VITALS: BP 118/64; RESP 20
[2017-08-03] MEDS: CEPHALEXIN 500 MG CAP PO SCH ×2 (16:16→23:20)
[2017-08-03] MEDS: ACETAMINOPHEN 325 MG TAB PO PRN (20:55)
[2017-08-03] MEDS: DOCUSATE SODIUM 100 MG CAP PO SCH (20:55)
[2017-08-03] MEDS ORDERED: SOD CHLORIDE 0.9% 500 ML IV ONE (21:00)
[2017-08-03 21:01] VITALS: BP 135/72; RESP 21
[2017-08-04] MEDS: SOD CHLORIDE 0.9% 1,000 ML IV SCH ×3 (01:49→18:49)
[2017-08-04 02:54] VITALS: BP 146/87; RESP 19
[2017-08-04 05:47] LABS: ABNORMAL IP MESSAGE 1; BASOPHILS % 0.9 % (0.0-2.0); EOSINOPHILS # 0.1 10^3/ul (0.0-0.5); EOSINOPHILS % 4.3 % (0.0-7.0); HEMATOCRIT 28.1 % (42.0-52.0); HEMOGLOBIN 9.4 g/dl (14.0-18.0); LYMPHOCYTES # 0.5 10^3/ul (0.8-2.9); LYMPHOCYTES % 19.5 % (15.0-51.0); MEAN CORPUSCULAR HEMOGLOBIN 33.9 pg (29.0-33.0); MEAN CORPUSCULAR HGB CONC 33.5 g/dl (32.0-37.0); MEAN CORPUSCULAR VOLUME 101.4 fl (82.0-101.0); MEAN PLATELET VOLUME 11.6 fl (7.4-10.4); MONOCYTE # 0.4 10^3/ul (0.3-0.9); MONOCYTES % 15.2 % (0.0-11.0); NEUTROPHIL # 1.4 10^3/ul (1.6-7.5); NEUTROPHILS % 59.2 % (39.0-77.0); POSITIVE DIFF @See below; RED BLOOD COUNT 2.77 10^6/ul (4.70-6.10); RED CELL DISTRIBUTION WIDTH 19.8 % (11.5-14.5); WHITE BLOOD COUNT 2.3 10^3/ul (4.8-10.8)
[2017-08-04] MEDS: CEPHALEXIN 500 MG CAP PO SCH ×3 (05:53→21:48)
[2017-08-04] MEDS: morphine 2 MG INJ IV PRN ×4 (05:53→22:59)
[2017-08-04 06:19] LABS: CALCIUM 7.4 mg/dl (8.4-10.2); CREATININE 0.56 mg/dl (0.61-1.24)
[2017-08-04 06:30] LABS: PLATELET COUNT 35 10^3/UL (140-415)
[2017-08-04 08:00] VITALS: BP 138/64; RESP 18
[2017-08-04] MEDS: FAMOTIDINE 20 MG TAB PO SCH ×2 (08:32→20:01)
[2017-08-04] MEDS: DOCUSATE SODIUM 100 MG CAP PO SCH ×2 (08:32→20:01)
[2017-08-04] MEDS: ACETAMINOPHEN 325 MG TAB PO PRN (08:37)
[2017-08-04] MEDS: ALBUTEROL/IPRATROPIUM (NEB) 3 ML AMP HHN SCH ×4 (09:00→20:30)
--- NOTE | 2017-08-04 09:47 | PN ---
Date/Time of Note Date/Time of Note DATE: 08/04/17 TIME: 09:45 Assessment/Plan VTE Prophylaxis VTE Prophylaxis Intervention: ambulation Lines/Catheters IV Catheter Type (from Nrsg): Mid Line Urinary Cath still in place: No Assessment/Plan Chief Complaint/Hosp Course 1. Debility with chronic L1 Lumbar spinal fractures with severe multilevel spinal canal stenosis of L2-L3-L4 -Conservative management as patient does not wish to pursue any aggressive management including NS -Pain control, PT eval and treatment. 2. Alcoholic and Hep C Liver cirrhosis. -Hyperbilirubinemia portends a poor prognosis - Recommend outpatient [employer] follow-up if patient is amenable. -Conservative medical management/Lifestyle modification/ Cessation of alcohol abuse. 3. Hepatitis C with high viral load detected with PCR -As per GI, patient to be followed up as outpatient for hep C management. 4. Transaminase elevation with hyperbilirubinemia secondary to #2 -Monitor 5. Alphahemolytic Streptococcus likely contamination vs 2/2 cytopenia. No evidence of sepsis. Repeat CS negative. -On Keflex 5 day course. 6. Hematemesis with Esophageal varices, status post EGD with banding on 2016.Stable. -Continue PPIs. Diet as tolerated. 7. Thrombocytopenia with concomitant Leukopenia, most likely secondary to splenomegaly with splenic margination. -WBC starting to trend up to desired range without any G-CSF. Status post plateletpheresis. Platelets remains at baseline without further drops. -As per hematology recommendation, peripheral smear is negative and no further inpatient hematological workup indicated. 8.Anemia, multifactorial with acute and chronic GI blood loss, alcohol toxicity and spllenomegaly -Stable HH.Monitor closely. 9.Stigmata of Portal HTN/Splenomegaly with liver cirrhosis 10. History of asthma. Controlled. -As needed bronchodilators. 11. Chronic non-reducible Ventral hernia of right abdominal wall -At this time, patient does not want to have any further follow-up on this. 12. Chronic back pain with reported history of spinal fractures. -Continue pain medications as needed. Follow-up with MRI. 13.Cholelithiasis. MRCP negative for choledocho. -Surgery eval appreciated. Recommended eventual cholecystectomy as outpatient. 14. Homelessness. -pantry worker consult has been requested. 15. Alcohol abuse. -Cessation advised. PLAN: Overall, patient with improvement in clinical and laboratory findings. Will continue to monitor. Estimated discharge planning to board and care facility with home health PT in 24-48 hours. DVT prophylaxis: SCDs Plan: Continue current management. F/u cultures. Case management for discharge planning to extended care facility. Patient was seen in collaboration with Dr. Sultana. Problems: Subjective 24 Hr Interval Summary Free Text/Dictation No acute distress. Exam/Review of Systems Vital Signs Vitals Vital Signs Date Time Temp Pulse Resp B/P Pulse Ox O2 Delivery O2 Flow Rate FiO2 08/04/17 08:00 98.8 80 18 138/64 96 08/03/17 20:35 21 08/03/17 16:23 Nasal Cannula 2.0 Intake and Output 08/03/17 08/03/17 08/04/17 15:00 23:00 07:00 Intake Total 266 ml 2100 ml 1190 ml Balance 266 ml 2100 ml 1190 ml Exam General: Chronically ill looking male, not in any acute distress . HEENT: Normocephalic, Atraumatic, No laceration or hematoma; Eyes: PEERL, Conjunctiva clear, Anicteric sclera Neck: Supple without any lymphadenopathy, nontender, no JVD, no carotid bruits, trachea midline, no thyromegaly Cardiac: S1, S2 auscultated, regular rhythm and rate, no mumurs or gallop Pulmonary: Normal respiratory effort. Chest clear to auscultation bilaterally, no adventitious breath sounds GI: Huge mass/hernia to right abdomen. Soft, non tender, non- distended, no masses, no rebound tenderness or guarding. Bowel sounds active on all four quadrants Genitourinary: Deferred Extremities: Generalized weakness to lower extremities. Denies any numbness/ tingling. No cyanosis, clubbing, or edema. Pulses [2+] bilaterally. No focal weakness appreciated. Neurologic: Awake and oriented 3. Slightly confused. Follows simple commands. Skin: Clean,dry, and intact. No ecchymosis, no rashes, or lesions Results Result Diagram: 08/04/1744608/04/17446 Results 24 hrs Laboratory Tests Test 08/04/17 04:47 White Blood Count 2.3 #L Red Blood Count 2.77 L Hemoglobin 9.4 L Hematocrit 28.1 L Mean Corpuscular Volume 101.4 H Mean Corpuscular Hemoglobin 33.9 H Mean Corpuscular Hemoglobin Concent 33.5 Red Cell Distribution Width 19.8 H Platelet Count 35 L Mean Platelet Volume 11.6 H Neutrophils % 59.2 Lymphocytes % 19.5 Monocytes % 15.2 H Eosinophils % 4.3 Basophils % 0.9 Nucleated Red Blood Cells % 0.0 Neutrophils # 1.4 L Lymphocytes # 0.5 L Monocytes # 0.4 Eosinophils # 0.1 Basophils # 0.0 Nucleated Red Blood Cells # 0.0 Sodium Level 135 Potassium Level 4.0 Chloride Level 107 Carbon Dioxide Level 22 Anion Gap 10 Blood Urea Nitrogen 9 Creatinine 0.56 L Glucose Level 91 Calcium Level 7.4 L Medications Medications Current Medications Sodium Chloride (NS) 1,000 ml @ 100 mls/hr Q10H IV Last administered on 08:33; Admin Dose 100 MLS/HR; Start 07/31/17 at 11:15 Ondansetron HCl (Zofran Inj) 4 mg Q6H PRN IV NAUSEA AND/OR VOMITING; Start 07/31/17 at 11:30 Acetaminophen (Tylenol Tab) 650 mg Q6H PRN PO PAIN LEVEL 1-3 OR FEVER Last administered on 08/04/17 08:37; Admin Dose 650 MG; Start 07/31/17 at 11:30 Acetaminophen (Tylenol Supp) 650 mg Q6H PRN [place] PAIN LEVEL 1-3 OR FEVER; Start 07/31/17 at 11:30 Morphine Sulfate (morphine) 2 mg Q4H PRN IV SEVERE PAIN LEVEL 7-10 Last administered on 08/04/17 05:53; Admin Dose 2 MG; Start 07/31/17 at 11:30 Famotidine (Pepcid) 20 mg Q12 PO Last administered on 08/04/17 08:32; Admin Dose 20 MG; Start 07/31/17 at 21:00 Docusate Sodium (Colace) 100 mg Q12 PO Last administered on 08/04/17 08:32; Admin Dose 100 MG; Start 08/03/17 at 21:00 Bisacodyl (Dulcolax) 10 mg DAILY PRN PO CONSTIPATION Last administered on 08/03 16:16; Admin Dose 10 MG; Start 08/03/17 at 11:30 Cephalexin (Keflex) 500 mg Q8 PO Last administered on 08/04/17 05:53; Admin Dose 500 MG; Start 08/03/17 at 14:00; Stop 08/08/17 at 13:59 CONOR CARDONA NP Aug 04, 2017 09:47 CONOR CARDONA NP Aug 04, 2017 09:47
[2017-08-04 14:00] VITALS: BP 132/64; RESP 18
--- NOTE | 2017-08-04 14:54 | PN ---
Date/Time of Note Date/Time of Note DATE: 08/04/17 TIME: 14:52 Assessment/Plan Lines/Catheters IV Catheter Type (from [facility]): Mid Line [place] in Place (from [facility]): No Assessment/Plan Chief Complaint/Hosp Course 1. Cholelithiasis without cholecystitis/choledocholithiasis: No pain, negative roberson's; discussed cholecystectomy; refusing any intervention at this time -no emergent surgical intervention needed at this time; eventual lap reginald, can be done outpatient -follow up with pcp (to find pcp) 2. Generalized weakness: no focal weakness -further workup per medical team 3. Transaminitis; elevated bili; AST greater elevation that alk phos > likely 2/ 2 hepatocellular disease (hep c hx) more than biliary tree obstruction; improving; -trend 4. Pancytopenia: likely 2/2 liver dx +/- other; -per onc consult- neupogen per onc recs for thrombocytopenia -supportive 5. Macrocytic anemia with Grade III/IV esophageal varices (Post EVL 3), Gastritis, Duodenitis -ppi -bp control -monitor and transfuse as needed 6. History of asthma -supportive 7. Ventral hernia : no pain, reducible -eventual corrective surgery 8. Alcohol abuse -strongly advice cessation -?outpatient rehab program 9. Hepatitis C with Cirrhosis -management per hepatology/gi Thank you, Problems: Subjective 24 Hr Interval Summary Min pain. No bloating. Tolerating diet. No fevers, chills, sob, congested cough , cp, palpitations, curtis, dizziness, n/v/d/dysuria. Exam/Review of Systems Vital Signs Vitals Vital Signs Date Time Temp Pulse Resp B/P Pulse Ox O2 Delivery O2 Flow Rate FiO2 08/04/17 08:00 98.8 80 18 138/64 96 08/03/17 20:35 21 08/03/17 16:23 Nasal Cannula 2.0 Intake and Output 08/03/17 08/03/17 08/04/17 15:00 23:00 07:00 Intake Total 266 ml 2100 ml 1190 ml Balance 266 ml 2100 ml 1190 ml Exam Free Text/Dictation Constitutional: alert, oriented (x2) Psych: anxiety Head: atraumatic, normocephalic Eyes: nl lids, nl sclera ENMT: mucosa pink and moist, nl nasal mucosa & septum Neck: non-tender, supple Respiratory: clear to auscultation, normal air movement Cardiovascular: nl pulses Gastrointestinal: bowel sounds, non-tender, other (ventral hernia), soft, surgical scars Musculoskeletal: nl extremities to inspection, nl gait and stance Extremities: normal pulses Neurological: No focal weakness, No nl strength Skin: ecchymosis, No rash or lesions Results Result Diagram: 08/04/17 0447 08/04/17 0447 HIGINIO MAXWELL MD Aug 04, 2017 14:54
[2017-08-04 19:58] VITALS: BP 138/85; RESP 20
--- NOTE | 2017-08-04 21:36 | CONS ---
Date/Time of Note Date/Time of Note DATE: 08/04/17 TIME: 21:35 Assessment/Plan Assessment/Plan Chief Complaint/Hosp Course Assessment: Hyperbilirubinemia r/o choledocholithiasis vs worsening of liver disease Hematemesis-likely secondary to esophageal varices/Black stools likely due to esophageal varices EGD 08/01/17 Impression: Grade III/IV esophageal varices Post EVL 3 Gastritis Duodenitis Generalized weakness Thrombocytopenia likely secondary to cirrhosis Abnormal LFTs/ Hep C Ab positive vs ETOH Cirrhosis-likely combination of EtOH and hepatitis C Electrolyte imbalance/hypokalemia/replaced History of asthma Chronic back pain Painless abdominal hernia Plan: Continue PPI twice daily low salt diet Monitor H&H, transfuse as necessary hematology eval for persistent profound thrombocytopenia MRCP- negative for choledocholithiasis HCV RNA-pending Alpha-fetoprotein 3.51- in normal range continue supportive care Problems: Consultation Date/Type/Reason Admit Date/Time Jul 31, 2017 at 10:20 Initial Consult Date 08/02/17 Type of Consultation: GI Referring Provider: CONOR CARDOAN NP 24 HR Interval Summary Free Text/Dictation Min pain. No bloating. Tolerating diet. No fevers, chills, sob, congested cough , cp, palpitations, curtis, dizziness, n/v/d/dysuria. Exam/Review of Systems Vital Signs Vitals Vital Signs Date Time Temp Pulse Resp B/P Pulse Ox O2 Delivery O2 Flow Rate FiO2 08/04/17 20:30 98 2.0 08/04/17 20:30 98 20 Nasal Cannula 08/04/17 19:58 98.7 138/85 08/03/17 20:35 21 Intake and Output 08/03/17 08/03/17 08/04/17 14:59 22:59 06:59 Intake Total 266 ml 2100 ml 1190 ml Balance 266 ml 2100 ml 1190 ml Exam Head: atraumatic, normocephalic Eyes: EOMI, icteric ENMT: nl external ears & nose, nl lips & teeth, nl nasal mucosa & septum Neck: non-tender, supple Respiratory: clear to auscultation, normal air movement Cardiovascular: nl pulses, regular rate and rhythm Gastrointestinal: bowel sounds, non-tender, soft Results Result Diagram: 08/04/1744608/04/17446 Results 24 hrs Laboratory Tests Test 08/04/17 04:47 White Blood Count 2.3 #L Red Blood Count 2.77 L Hemoglobin 9.4 L Hematocrit 28.1 L Mean Corpuscular Volume 101.4 H Mean Corpuscular Hemoglobin 33.9 H Mean Corpuscular Hemoglobin Concent 33.5 Red Cell Distribution Width 19.8 H Platelet Count 35 L Mean Platelet Volume 11.6 H Neutrophils % 59.2 Lymphocytes % 19.5 Monocytes % 15.2 H Eosinophils % 4.3 Basophils % 0.9 Nucleated Red Blood Cells % 0.0 Neutrophils # 1.4 L Lymphocytes # 0.5 L Monocytes # 0.4 Eosinophils # 0.1 Basophils # 0.0 Nucleated Red Blood Cells # 0.0 Sodium Level 135 Potassium Level 4.0 Chloride Level 107 Carbon Dioxide Level 22 Anion Gap 10 Blood Urea Nitrogen 9 Creatinine 0.56 L Glucose Level 91 Calcium Level 7.4 L Medications Medications Current Medications Sodium Chloride (NS) 1,000 ml @ 100 mls/hr Q10H IV Last administered on 08:33; Admin Dose 100 MLS/HR; Start 07/31/17 at 11:15 Ondansetron HCl (Zofran Inj) 4 mg Q6H PRN IV NAUSEA AND/OR VOMITING; Start 07/31/17 at 11:30 Acetaminophen (Tylenol Tab) 650 mg Q6H PRN PO PAIN LEVEL 1-3 OR FEVER Last administered on 08/04/17 08:37; Admin Dose 650 MG; Start 07/31/17 at 11:30 Acetaminophen (Tylenol Supp) 650 mg Q6H PRN [place] PAIN LEVEL 1-3 OR FEVER; Start 07/31/17 at 11:30 Morphine Sulfate (morphine) 2 mg Q4H PRN IV SEVERE PAIN LEVEL 7-10 Last administered on 08/04/17 18:38; Admin Dose 2 MG; Start 07/31/17 at 11:30 Famotidine (Pepcid) 20 mg Q12 PO Last administered on 08/04/17 20:01; Admin Dose 20 MG; Start 07/31/17 at 21:00 Docusate Sodium (Colace) 100 mg Q12 PO Last administered on 08/04/17 20:01; Admin Dose 100 MG; Start 08/03/17 at 21:00 Bisacodyl (Dulcolax) 10 mg DAILY PRN PO CONSTIPATION Last administered on 08/03 16:16; Admin Dose 10 MG; Start 08/03/17 at 11:30 Cephalexin (Keflex) 500 mg Q8 PO Last administered on 08/04/17 13:55; Admin Dose 500 MG; Start 08/03/17 at 14:00; Stop 08/08/17 at 13:59 LADY CARTER MD Aug 04, 2017 21:36
[2017-08-05] MEDS: SOD CHLORIDE 0.9% 1,000 ML IV SCH ×2 (01:01→14:07)
[2017-08-05 02:19] VITALS: BP 133/74; RESP 20
[2017-08-05] MEDS: morphine 2 MG INJ IV PRN ×3 (03:12→18:04)
[2017-08-05] MEDS: CEPHALEXIN 500 MG CAP PO SCH ×3 (05:21→21:49)
[2017-08-05 07:40] VITALS: BP 121/72; RESP 18
[2017-08-05] MEDS: DOCUSATE SODIUM 100 MG CAP PO SCH ×2 (08:48→20:21)
[2017-08-05] MEDS: FAMOTIDINE 20 MG TAB PO SCH ×2 (08:48→20:21)
[2017-08-05] MEDS: ALBUTEROL/IPRATROPIUM (NEB) 3 ML AMP HHN SCH ×5 (09:00→21:30)
--- NOTE | 2017-08-05 10:22 | PN ---
Date/Time of Note Date/Time of Note DATE: 08/05/17 TIME: 10:20 Assessment/Plan VTE Prophylaxis VTE Prophylaxis Intervention: ambulation Lines/Catheters IV Catheter Type (from Nrsg): Mid Line Urinary Cath still in place: No Assessment/Plan Chief Complaint/Hosp Course 1. Debility with chronic L1 Lumbar spinal fractures with severe multilevel spinal canal stenosis of L2-L3-L4 -Conservative management as patient does not wish to pursue any aggressive management including NS -Pain control, PT eval and treatment. 2. Alcoholic and Hep C Liver cirrhosis. -Hyperbilirubinemia portends a poor prognosis - Recommend outpatient Mental Health Consultant follow-up if patient is amenable. -Conservative medical management/Lifestyle modification/ Cessation of alcohol abuse. 3. Hepatitis C with high viral load detected with PCR -As per GI, patient to be followed up as outpatient for hep C management. 4. Transaminase elevation with hyperbilirubinemia secondary to #2 -Monitor 5. Alphahemolytic Streptococcus likely contamination vs 2/2 cytopenia. No evidence of sepsis. Repeat CS negative. -On Keflex 5 day course. 6. Hematemesis with Esophageal varices, status post EGD with banding on 2016.Stable. -Continue PPIs. Diet as tolerated. 7. Thrombocytopenia with concomitant Leukopenia, most likely secondary to splenomegaly with splenic margination. -WBC starting to trend up to desired range without any G-CSF. Status post plateletpheresis. Platelets remains at baseline without further drops. -As per hematology, peripheral smear is negative and no further hematology workup indicated. 8.Anemia, multifactorial with acute and chronic GI blood loss, alcohol toxicity and splenomegaly -Stable HH.Monitor closely. 9.Stigmata of Portal HTN/Splenomegaly with liver cirrhosis 10. History of asthma. Controlled. -As needed bronchodilators. 11. Chronic non-reducible Ventral hernia of right abdominal wall -At this time, patient does not want to have any further follow-up on this. 12. Chronic back pain with reported history of spinal fractures. -Continue pain medications as needed. Follow-up with MRI. 13.Cholelithiasis. MRCP negative for choledocho. -Surgery eval appreciated. Recommended eventual cholecystectomy as outpatient. 14. Homelessness. -molding utility worker consult has been requested. 15. Alcohol abuse. -Cessation advised. PLAN: Overall, patient with improvement in clinical and laboratory findings. Will continue to monitor. Estimated discharge planning to [facility] care facility with home health PT tomorrow. DVT prophylaxis: SCDs Plan: Continue current management. F/u cultures. Case management for discharge planning to extended care facility. Patient was seen in collaboration with Dr. Sultana. Problems: Subjective 24 Hr Interval Summary Free Text/Dictation Overall, patient doing well. He is not in any acute distress. Tolerating diet and activities. Exam/Review of Systems Vital Signs Vitals Vital Signs Date Time Temp Pulse Resp B/P Pulse Ox O2 Delivery O2 Flow Rate FiO2 08/05/17 09:36 2.0 08/05/17 09:34 98 22 Nasal Cannula 08/05/17 07:40 99.4 121/72 98 08/03/17 20:35 21 Intake and Output 08/04/17 08/04/17 08/05/17 15:00 23:00 07:00 Intake Total 690 ml 880 ml 1380 ml Output Total 1100 ml Balance 690 ml 880 ml 280 ml Exam General: Chronically ill looking male, not in any acute distress . HEENT: Normocephalic, Atraumatic, No laceration or hematoma; Eyes: PEERL, Conjunctiva clear, Anicteric sclera Neck: Supple without any lymphadenopathy, nontender, no JVD, no carotid bruits, trachea midline, no thyromegaly Cardiac: S1, S2 auscultated, regular rhythm and rate, no mumurs or gallop Pulmonary: Normal respiratory effort. Chest clear to auscultation bilaterally, no adventitious breath sounds GI: Huge mass/hernia to right abdomen. Soft, non tender, non- distended, no masses, no rebound tenderness or guarding. Bowel sounds active on all four quadrants Genitourinary: Deferred Extremities: Generalized weakness to lower extremities. Denies any numbness/ tingling. No cyanosis, clubbing, or edema. Pulses [2+] bilaterally. No focal weakness appreciated. Neurologic: Awake and oriented 3. Slightly confused. Follows simple commands. Skin: Clean,dry, and intact. No ecchymosis, no rashes, or lesions Results Result Diagram: 08/04/1744608/04/17446 Medications Medications Current Medications Sodium Chloride (NS) 1,000 ml @ 100 mls/hr Q10H IV Last administered on 01:01; Admin Dose 100 MLS/HR; Start 07/31/17 at 11:15 Ondansetron HCl (Zofran Inj) 4 mg Q6H PRN IV NAUSEA AND/OR VOMITING; Start 07/31/17 at 11:30 Acetaminophen (Tylenol Tab) 650 mg Q6H PRN PO PAIN LEVEL 1-3 OR FEVER Last administered on 08/04/17 08:37; Admin Dose 650 MG; Start 07/31/17 at 11:30 Acetaminophen (Tylenol Supp) 650 mg Q6H PRN [place] PAIN LEVEL 1-3 OR FEVER; Start 07/31/17 at 11:30 Morphine Sulfate (morphine) 2 mg Q4H PRN IV SEVERE PAIN LEVEL 7-10 Last administered on 08/05/17 10:08; Admin Dose 2 MG; Start 07/31/17 at 11:30 Famotidine (Pepcid) 20 mg Q12 PO Last administered on 08/05/17 08:48; Admin Dose 20 MG; Start 07/31/17 at 21:00 Docusate Sodium (Colace) 100 mg Q12 PO Last administered on 08/05/17 08:48; Admin Dose 100 MG; Start 08/03/17 at 21:00 Bisacodyl (Dulcolax) 10 mg DAILY PRN PO CONSTIPATION Last administered on 08/03 16:16; Admin Dose 10 MG; Start 08/03/17 at 11:30 Cephalexin (Keflex) 500 mg Q8 PO Last administered on 08/05/17 05:21; Admin Dose 500 MG; Start 08/03/17 at 14:00; Stop 08/08/17 at 13:59 CONOR CARDONA NP Aug 05, 2017 10:22
--- NOTE | 2017-08-05 12:07 | CONS ---
Date/Time of Note Date/Time of Note DATE: 08/05/17 TIME: 12:06 Assessment/Plan Assessment/Plan Chief Complaint/Hosp Course Assessment: Hyperbilirubinemia r/o choledocholithiasis vs worsening of liver disease Hematemesis-likely secondary to esophageal varices/Black stools likely due to esophageal varices EGD 08/01/17 Impression: Grade III/IV esophageal varices Post EVL 3 Gastritis Duodenitis Generalized weakness Thrombocytopenia likely secondary to cirrhosis Abnormal LFTs/ Hep C Ab positive vs ETOH Cirrhosis-likely combination of EtOH and hepatitis C Electrolyte imbalance/hypokalemia/replaced History of asthma Chronic back pain Painless abdominal hernia HepC viral load 30K Plan: Continue PPI twice daily low salt diet Monitor H&H, transfuse as necessary hematology eval for persistent profound thrombocytopenia MRCP- negative for choledocholithiasis Alpha-fetoprotein 3.51- in normal range continue supportive care Dr. Urena to resume care tomorrow Problems: Consultation Date/Type/Reason Admit Date/Time Jul 31, 2017 at 10:20 Initial Consult Date 08/02/17 Type of Consultation: GI Referring Provider: CONOR CARDONA NP 24 HR Interval Summary Free Text/Dictation sleeping, appears comfortable Exam/Review of Systems Vital Signs Vitals Vital Signs Date Time Temp Pulse Resp B/P Pulse Ox O2 Delivery O2 Flow Rate FiO2 08/05/17 09:36 2.0 08/05/17 09:34 98 22 Nasal Cannula 08/05/17 09:30 99.2 08/05/17 07:40 121/72 98 08/03/17 20:35 21 Intake and Output 08/04/17 08/04/17 08/05/17 15:00 23:00 07:00 Intake Total 690 ml 880 ml 1380 ml Output Total 1100 ml Balance 690 ml 880 ml 280 ml Exam Head: atraumatic, normocephalic Eyes: EOMI, nl conjunctiva, nl lids ENMT: nl external ears & nose, nl lips & teeth, nl nasal mucosa & septum Neck: non-tender, supple Respiratory: clear to auscultation, normal air movement Cardiovascular: nl pulses, regular rate and rhythm Gastrointestinal: bowel sounds, non-tender, soft Results Result Diagram: 08/04/1744608/04/17446 Medications Medications Current Medications Sodium Chloride (NS) 1,000 ml @ 100 mls/hr Q10H IV Last administered on 01:01; Admin Dose 100 MLS/HR; Start 07/31/17 at 11:15 Ondansetron HCl (Zofran Inj) 4 mg Q6H PRN IV NAUSEA AND/OR VOMITING; Start 07/31/17 at 11:30 Acetaminophen (Tylenol Tab) 650 mg Q6H PRN PO PAIN LEVEL 1-3 OR FEVER Last administered on 08/04/17 08:37; Admin Dose 650 MG; Start 07/31/17 at 11:30 Acetaminophen (Tylenol Supp) 650 mg Q6H PRN [place] PAIN LEVEL 1-3 OR FEVER; Start 07/31/17 at 11:30 Morphine Sulfate (morphine) 2 mg Q4H PRN IV SEVERE PAIN LEVEL 7-10 Last administered on 08/05/17 10:08; Admin Dose 2 MG; Start 07/31/17 at 11:30 Famotidine (Pepcid) 20 mg Q12 PO Last administered on 08/05/17 08:48; Admin Dose 20 MG; Start 07/31/17 at 21:00 Docusate Sodium (Colace) 100 mg Q12 PO Last administered on 08/05/17 08:48; Admin Dose 100 MG; Start 08/03/17 at 21:00 Bisacodyl (Dulcolax) 10 mg DAILY PRN PO CONSTIPATION Last administered on 08/03 16:16; Admin Dose 10 MG; Start 08/03/17 at 11:30 Cephalexin (Keflex) 500 mg Q8 PO Last administered on 08/05/17 05:21; Admin Dose 500 MG; Start 08/03/17 at 14:00; Stop 08/08/17 at 13:59 LADY CARTER MD Aug 05, 2017 12:07
[2017-08-05 14:18] VITALS: BP 150/77; RESP 18
[2017-08-05 15:09] LABS: ABNORMAL IP MESSAGE 1; BASOPHILS % 1.6 % (0.0-2.0); EOSINOPHILS # 0.1 10^3/ul (0.0-0.5); EOSINOPHILS % 3.5 % (0.0-7.0); HEMATOCRIT 29.8 % (42.0-52.0); HEMOGLOBIN 10.1 g/dl (14.0-18.0); LYMPHOCYTES # 0.3 10^3/ul (0.8-2.9); LYMPHOCYTES % 12.8 % (15.0-51.0); MEAN CORPUSCULAR HEMOGLOBIN 34.4 pg (29.0-33.0); MEAN CORPUSCULAR HGB CONC 33.9 g/dl (32.0-37.0); MEAN CORPUSCULAR VOLUME 101.4 fl (82.0-101.0); MEAN PLATELET VOLUME 10.8 fl (7.4-10.4); MONOCYTE # 0.5 10^3/ul (0.3-0.9); MONOCYTES % 17.4 % (0.0-11.0); NEUTROPHIL # 1.7 10^3/ul (1.6-7.5); NEUTROPHILS % 64.3 % (39.0-77.0); POSITIVE DIFF @See below; RED BLOOD COUNT 2.94 10^6/ul (4.70-6.10); RED CELL DISTRIBUTION WIDTH 19.4 % (11.5-14.5); WHITE BLOOD COUNT 2.6 10^3/ul (4.8-10.8)
[2017-08-05 15:12] LABS: PLATELET COUNT 38 10^3/UL (140-415)
--- NOTE | 2017-08-05 16:09 | PN ---
Date/Time of Note Date/Time of Note DATE: 08/05/17 TIME: 16:06 Assessment/Plan Lines/Catheters IV Catheter Type (from [facility]): Mid Line Toussaint in Place (from [facility]): No Assessment/Plan Chief Complaint/Hosp Course 1. Cholelithiasis without cholecystitis/choledocholithiasis: No pain, negative roberson's; discussed cholecystectomy; refusing any intervention at this time -no emergent surgical intervention needed at this time; eventual lap reginald, can be done outpatient -follow up with pcp (to find pcp) 2. Generalized weakness: no focal weakness -further workup per medical team 3. Transaminitis; elevated bili; AST greater elevation that alk phos > likely 2/ 2 hepatocellular disease (hep c hx) more than biliary tree obstruction; improving; -trend -will need hep c follow up outpatient 4. Pancytopenia: likely 2/2 liver dx +/- other; -per onc consult- neupogen per onc recs for thrombocytopenia -supportive 5. Macrocytic anemia with Grade III/IV esophageal varices (Post EVL 3), Gastritis, Duodenitis -ppi -bp control -monitor and transfuse as needed 6. History of asthma -supportive 7. Ventral hernia : no pain, reducible -eventual corrective surgery 8. Alcohol abuse -strongly advice cessation -?outpatient rehab program 9. Hepatitis C -management per hepatology/gi; outpatient Thank you. Patient seen and examined in collaboration with Dr. Lyle Lenz. Problems: Subjective 24 Hr Interval Summary No c/o abdominal pain/discomfort. Tolerating diet. No fevers, chills, sob, congested cough, cp, palpitations, curtis, dizziness, n/v/d/dysuria. Exam/Review of Systems Vital Signs Vitals Vital Signs Date Time Temp Pulse Resp B/P Pulse Ox O2 Delivery O2 Flow Rate FiO2 08/05/17 14:18 97.6 100 18 150/77 95 08/05/17 09:36 2.0 08/05/17 09:34 Nasal Cannula 08/03/17 20:35 21 Intake and Output 08/04/17 08/04/17 08/05/17 15:00 23:00 07:00 Intake Total 690 ml 880 ml 1380 ml Output Total 1100 ml Balance 690 ml 880 ml 280 ml Exam Free Text/Dictation Constitutional: alert, oriented (x2) Psych: anxiety Head: atraumatic, normocephalic Eyes: nl lids, nl sclera ENMT: mucosa pink and moist, nl nasal mucosa & septum Neck: non-tender, supple Respiratory: clear to auscultation, normal air movement Cardiovascular: nl pulses Gastrointestinal: bowel sounds, non-tender, other (ventral hernia), soft, surgical scars Musculoskeletal: nl extremities to inspection Extremities: normal pulses Neurological: No focal weakness, No nl strength Skin: ecchymosis, No rash or lesions Results Result Diagram: 08/05/17 1453 08/04/17 0447 JAQUELINE BEAN NP Aug 05, 2017 16:09
[2017-08-05 19:50] VITALS: BP 146/86; RESP 18
[2017-08-06] MEDS: SOD CHLORIDE 0.9% 1,000 ML IV SCH ×2 (00:21→11:05)
[2017-08-06] MEDS: morphine 2 MG INJ IV PRN ×4 (00:23→12:54)
[2017-08-06 02:15] VITALS: BP 128/81; RESP 20
[2017-08-06] MEDS: CEPHALEXIN 500 MG CAP PO SCH ×2 (05:31→14:05)
[2017-08-06 06:18] LABS: ABNORMAL IP MESSAGE 1; HEMATOCRIT 27.7 % (42.0-52.0); MEAN CORPUSCULAR HEMOGLOBIN 32.7 pg (29.0-33.0); MEAN CORPUSCULAR HGB CONC 32.5 g/dl (32.0-37.0); MEAN CORPUSCULAR VOLUME 100.7 fl (82.0-101.0); MEAN PLATELET VOLUME 12.7 fl (7.4-10.4); PLATELET COUNT 38 10^3/UL (140-415); POSITIVE DIFF @See below; RED BLOOD COUNT 2.75 10^6/ul (4.70-6.10); RED CELL DISTRIBUTION WIDTH 19.4 % (11.5-14.5); WHITE BLOOD COUNT 2.6 10^3/ul (4.8-10.8)
[2017-08-06] MEDS: ALBUTEROL/IPRATROPIUM (NEB) 3 ML AMP HHN SCH ×2 (08:05→12:56)
[2017-08-06 08:06] VITALS: BP 135/86; RESP 20
[2017-08-06] MEDS: DOCUSATE SODIUM 100 MG CAP PO SCH (08:45)
[2017-08-06] MEDS: FAMOTIDINE 20 MG TAB PO SCH (08:45)
[2017-08-06 09:00] LABS: ANISOCYTOSIS 3+ (0-0); BASOPHILS % (M) 2 % (0-2); EOSINOPHILS % (M) 2 % (0-7); GIANT THROMBO% (M) 12 % (0-0); MONOCYTES % (M) 6 % (0-11); PLATELET ESTIMATE DECREASED; POLYCHROMASIA 2+ (0-0)
--- NOTE | 2017-08-06 09:12 | PDOCDIS ---
Discharge Instructions CONDITION Patient Condition: Stable HOME CARE INSTRUCTIONS: Special Diet: MECHANICAL SOFT FOLLOW UP/APPOINTMENTS Follow-up Plan 1.Follow-up with in 1 week regarding your Hepatitis C outpatient management- Call for appointment [phone] [facility] [place] [address] Office 2.You will be benefitted from Domestic Cleaner [id number] primary care doctor can set up a referreal. 3.Follow up with primary care physician in 1 week If you don't have one please let someone know, we can give you resources that may help you pick one. You may also call your insurance company to assign one to you. Review your medication list with your nurse before leaving and if you need new prescriptions please let your nurse know. I may have made changes to your home medications or given you new prescriptions, please let your primary doctor know as well. Stay compliant with your medications and report any side effects to your PCP or pharmacist. Return to the ER if you have any concerns and cannot reach your doctors or call your insurance company, they usually have a nurse that can help you. 4. Call 911 or go to the nearest emergency room if experiencing loss of consciousness, dizziness, chest pain, shortness of breath, vomiting/abdominal pain, speech difficulties, motor weakness or any unusual symptoms. CONOR CARDONA NP Aug 06, 2017 09:12
--- NOTE | 2017-08-06 09:16 | DS ---
Date/Time of Note Date/Time of Note DATE: 08/06/17 TIME: 09:16 Discharge Summary Admission/Discharge Info Admit Date/Time Jul 31, 2017 at 10:20 Discharge Date/Time Discharge Diagnosis 1. Debility with chronic L1 Lumbar spinal fractures with severe multilevel spinal canal stenosis of L2-L3-L4 2. Alcoholic and Hep C Liver cirrhosis. 3. Hepatitis C 4. Transaminase elevation with hyperbilirubinemia secondary to Alcoholic and Hep C Liver cirrhosis. 5. Alphahemolytic Streptococcus likely contamination vs 2/2 cytopenia. No evidence of sepsis. Repeat CS negative. 6. Hematemesis with Esophageal varices grade III/IV, status post EGD with banding on 08/01/2017.Stable. 7. Thrombocytopenia with concomitant Leukopenia, likely secondary to Liver cirrhosis/splenomegaly with splenic margination. 8.Anemia, multifactorial with acute and chronic GI blood loss, alcohol toxicity and splenomegaly 9.Stigmata of Portal HTN/Splenomegaly with liver cirrhosis 10. History of asthma. 11. Chronic non-reducible Ventral hernia of right abdominal wall 12. Chronic back pain with reported history of spinal fractures. 13.Cholelithiasis. 14. Homelessness. 15. Alcohol abuse. Patient Condition: Stable Consults , gastroenterology Dr. Lenz, surgery Dr. Segundo, mainframe architect Procedures 08/01/2017 centimeter ultrasound abdomen. IMPRESSION: 1. Cholelithiasis and sludge without evidence of gallbladder wall thickening, surrounding fluid or positive sonographic Smith's sign. 2. Dilated common bile duct without intrahepatic biliary ductal dilatation. The common bile duct measures 11.7 mm. 3. Splenomegaly. 4. Unremarkable liver. 5. Left renal cyst. 6. The pancreas, aorta, and inferior vena cava were not visualized. 08/01/17 Procedure Performed: Endoscopy (With endoscopic variceal ligation) Impression: Grade III/IV esophageal varices Post EVL 3 Gastritis Duodenitis 08/02/2017. MRCP. IMPRESSION: Markedly limited examination due to severe respiratory motion artifact. Liver cirrhosis with stigmata of portal hypertension including splenomegaly and small to moderate abdominopelvic ascites. There is also small pleural effusions and extensive overlying anasarca. Cholelithiasis without gallbladder wall thickening or inflammation. There is mild to biliary dilatation without filling defect or choledocholithiasis. 08/02/2017. Lumbar spine MRI. L1 Lumbar spinal fractures with severe multilevel spinal canal stenosis of L2- L3-L4 (this result was not scanned in [facility] for whatsoever recent, there is a hard copy in the chart.) Hospital Course This is a 67-year-old poor historian homeless male with current everyday alcohol abuse, chronic lumbar spine fractures and stenosis, who presented to the emergency room with progressive weakness with inability to walk. Upon arrival, there was no medical history available on this patient. He was also lethargic and drowsy to obtain a clear review of system. Patient was noted with initial WBC 3600, platelet 26,000. His hemoglobin was 13.1 upon arrival. Patient also had a potassium 3.0, elevated total bilirubin 8.5, direct bilirubin 5.40, indirect bilirubin 3.1, AST 145, alkaline phosphatase 214 with low albumin 2.9 upon presentation. He was admitted for further evaluation. MRI of lumbar spine showed L1 Lumbar spinal fractures with severe multilevel spinal canal stenosis of L2-L3-L4. Conservative medical management with pain control with PT evaluation and treatment was recommended as patient fracture is chronic in nature and he did not want to pursue any aggressive surgical management. Patient was noted with alcoholic liver cirrhosis with stigmata of portal hypertension/splenomegaly. There was no ascites. He also was positive for hepatitis C. This explains patient's hyperbilirubinemia as well as transaminase elevation. Hyperbilirubinemia portrends a poor prognosis on this patient and was recommended to have outpatient dairy nutrition consultant follow-up. Due to his current history of alcohol abuse, we doubt whether he would be a candidate for liver transplant at this time. Patient was also noted with alphahemolytic streptococcal bacteremia in 1 set for which he received antibiotics. A repeat culture was negative. Patient continued to have neutropenia and thrombocytopenia for which he received platelet pheresis. Patient also had hematemesis for which he had undergone endoscopy with our GI colleagues with the findings of grade 3 esophageal varices for which he had banding. He was also noted with gastritis and duodenitis. Patient was continued on H2 em therapy. There was no further hematemesis. Patient's hemoglobin remained stable for which he did not require any blood transfusion. Platelets remained at baseline in the 30s. At this time, culprit of thrombocytopenia with concomitant leukopenia is most likely secondary to splenomegaly with splenic margination. Patient was also evaluated by mainframe architect. He did not require any granulocyte colony stability factors at this time. Patient's peripheral smears negative. Patient's WBC remained at baseline at [phone]. During the course of hospitalization, patient was also evaluated by surgery service for his nonreducible ventral hernia of right abdominal wall which is not amenable to any surgical treatment at this time. Patient also did not want to have any further surgical workup on this. He also had cholelithiasis in the imaging without any evidence of choledocho. Since patient remained asymptomatic , this was deferred for outpatient monitoring for eventual cholecystectomy. At this time, patient is feeling back to his baseline. He remained alert and oriented. He was tolerating diet. Patient was then evaluated by physical therapy. The recommendation was to send patient home with home health physical therapy. Due to his homelessness situation, patient requested for library circulation assistant. He had case management evaluation. Patient was then accepted to a [id number] facility where he can continue home health physical therapy. Patient was also provided with resources for finding a primary care doctor as well as mainframe architect as outpatient. He was also instructed to follow-up with for his hepatitis C management as outpatient. He was instructed to continue taking PPI 2 times a day 6 weeks at least. Patient verbalized discharge instructions. Disposition: Patient will be discharged to [facility] and [facility] facility with home health physical therapy. Patient to follow-up with the primary care doctor, razor grinder and dairy nutrition consultant. Approximately 60 minutes was spent in coordinating the discharge on this patient. Patient was seen in collaboration with . Home Meds Active Scripts Hydrocodone/Acetaminophen ([place] 5-325 Tablet) 1 Each Tablet, 1 TAB PO Q6H Y for PAIN, #7 TAB Prov:LIN BRAGA PA-C 03/15/17 Albuterol Sulfate* (Proair HFA*) 8.5 Gm Hfa.aer.ad, 2 PUFF INH Q4H Y for WHEEZING AND SOB, #1 INHALER Prov:MARCIANO CHE PA-C 01/04/17 Follow-up Plan 1.Follow-up with in 1 week regarding your Hepatitis C outpatient management- Call for appointment [phone] [address] Office 2.You will be benefitted from Visual Arts Teacher [id number] primary care doctor can set up a referreal. 3.Follow up with primary care physician in 1 week If you don't have one please let someone know, we can give you resources that may help you pick one. You may also call your insurance company to assign one to you. Review your medication list with your nurse before leaving and if you need new prescriptions please let your nurse know. I may have made changes to your home medications or given you new prescriptions, please let your primary doctor know as well. Stay compliant with your medications and report any side effects to your PCP or pharmacist. Return to the ER if you have any concerns and cannot reach your doctors or call your insurance company, they usually have a nurse that can help you. 4. Call 911 or go to the nearest emergency room if experiencing loss of consciousness, dizziness, chest pain, shortness of breath, vomiting/abdominal pain, speech difficulties, motor weakness or any unusual symptoms. Primary Care Provider Not On Staff Doctor Pending Labs Laboratory Tests Test 08/05/17 14:53 08/06/17 05:26 White Blood Count 2.610^3/ul (4.8-10.8) 2.610^3/ul (4.8-10.8) Red Blood Count 2.9410^6/ul (4.70-6.10) 2.7510^6/ul (4.70-6.10) Hemoglobin 10.1g/dl (14.0-18.0) 9.0g/dl (14.0-18.0) Hematocrit 29.8% (42.0-52.0) 27.7% (42.0-52.0) Mean Corpuscular Volume 101.4fl (82.0-101.0) 100.7fl (82.0-101.0) Mean Corpuscular Hemoglobin 34.4pg (29.0-33.0) 32.7pg (29.0-33.0) Mean Corpuscular Hemoglobin Concent 33.9g/dl (32.0-37.0) 32.5g/dl (32.0-37.0) Red Cell Distribution Width 19.4% (11.5-14.5) 19.4% (11.5-14.5) Platelet Count 3810^3/UL (140-415) 3810^3/UL (140-415) Mean Platelet Volume 10.8fl (7.4-10.4) 12.7fl (7.4-10.4) Neutrophils % 64.3% (39.0-77.0) % (39.0-77.0) Lymphocytes % 12.8% (15.0-51.0) % (15.0-51.0) Monocytes % 17.4% (0.0-11.0) % (0.0-11.0) Eosinophils % 3.5% (0.0-7.0) % (0.0-7.0) Basophils % 1.6% (0.0-2.0) % (0.0-2.0) Nucleated Red Blood Cells % 0.0/100WBC (0.0-0.0) 0.0/100WBC (0.0-0.0) Neutrophils # 1.710^3/ul (1.6-7.5) 10^3/ul (1.6-7.5) Lymphocytes # 0.310^3/ul (0.8-2.9) 10^3/ul (0.8-2.9) Monocytes # 0.510^3/ul (0.3-0.9) 10^3/ul (0.3-0.9) Eosinophils # 0.110^3/ul (0.0-0.5) 10^3/ul (0.0-0.5) Basophils # 0.010^3/ul (0.0-0.1) 10^3/ul (0.0-0.1) Nucleated Red Blood Cells # 0.010^3/ul (0.0-0.0) 10^3/ul (0.0-0.0) Segmented Neutrophils % (Manual) 82% (39-77) Band Neutrophils % (Manual) 2% (0-4) Lymphocytes % (Manual) 6% (15-51) Monocytes % (Manual) 6% (0-11) Eosinophils % (Manual) 2% (0-7) Basophils % (Manual) 2% (0-2) Neutrophils # (Manual) 2.110^3/ul (1.7-7.5) Band Neutrophils # 0.010^3/ul (0.0-0.6) Absolute Lymphocytes (Manual) 0.110^3/ul (0.8-2.9) Absolute Monocytes (Manual) 0.110^3/ul (0.3-0.9) Basophils # (Manual) 0.010^3/ul (0.0-0.0) Platelet Estimate DECREASED Giant Platelets 12% (0-0) Polychromasia 2+ (0-0) Anisocytosis 3+ (0-0) Macrocytosis 3+ (0-0) CONOR CARDONA NP Aug 06, 2017 09:16
--- NOTE | 2017-08-06 09:18 | CONS ---
Date/Time of Note Date/Time of Note DATE: 08/06/17 TIME: 09:17 Assessment/Plan Assessment/Plan Chief Complaint/Hosp Course 67 yo with #Pancytopenia #Neutropenia #Bacteremia #Cirrhosis from Hep C and EtOH -Peripheral smear was reviewed and there is no evidence of blasts of myelodysplastic disorder. This suggests the cause of this pancytopenia is from his severe cirrhosis from his Etoh abuse and chronic hep c -Given his platelet count is greater than 20K I would not transfuse not would I initiate any therapy at this time. If his platelets drop to below 15K we can consider Promacta or NPLATE at that time to treat any concomitant ITP that may exist -Patients neutropenia is likely acute on chronic. WBC count has improve. As stated before, his baseline WBC count is already low from his underlying cirrhosis but this is now worse from the anabiotics he is on. -continue to monitor LFTs. Pt is unlikely a liver transplant candidate given he is still abusing ETOH. -ok for dc from hematology standpoint - Problems: Consultation Date/Type/Reason Admit Date/Time Jul 31, 2017 at 10:20 Initial Consult Date 08/02/17 Type of Consultation: Hematology Reason for Consultation pancytopenia Referring Provider: CONOR CARDONA NP 24 HR Interval Summary Free Text/Dictation no acute overnight events. no fevers Exam/Review of Systems Vital Signs Vitals Vital Signs Date Time Temp Pulse Resp B/P Pulse Ox O2 Delivery O2 Flow Rate FiO2 08/06/17 08:06 99.2 111 20 135/86 100 08/06/17 08:06 2.0 08/06/17 08:06 Nasal Cannula 08/03/17 20:35 21 Intake and Output 08/05/17 08/05/17 08/06/17 15:00 23:00 07:00 Intake Total 1690 ml 750 ml Output Total 1100 ml 1000 ml Balance 590 ml -250 ml Exam Constitutional: alert, oriented Psych: no complaints Head: normocephalic Eyes: nl conjunctiva ENMT: nl external ears & nose Neck: non-tender, supple Respiratory: clear to auscultation, normal air movement Cardiovascular: nl pulses, regular rate and rhythm Gastrointestinal: soft Neurological: BISQUE WARE DIPPER II-XII intact Results Result Diagram: 08/06/17 0526 08/04/17 0447 Results 24 hrs Laboratory Tests Test 08/05/17 14:53 08/06/17 05:26 White Blood Count 2.6 L 2.6 L Red Blood Count 2.94 L 2.75 L Hemoglobin 10.1 L 9.0 L Hematocrit 29.8 L 27.7 L Mean Corpuscular Volume 101.4 H 100.7 Mean Corpuscular Hemoglobin 34.4 H 32.7 Mean Corpuscular Hemoglobin Concent 33.9 32.5 Red Cell Distribution Width 19.4 H 19.4 H Platelet Count 38 L 38 L Mean Platelet Volume 10.8 H 12.7 H Neutrophils % 64.3 Lymphocytes % 12.8 L Monocytes % 17.4 H Eosinophils % 3.5 Basophils % 1.6 Nucleated Red Blood Cells % 0.0 0.0 Neutrophils # 1.7 Lymphocytes # 0.3 L Monocytes # 0.5 Eosinophils # 0.1 Basophils # 0.0 Nucleated Red Blood Cells # 0.0 Segmented Neutrophils % (Manual) 82 H Band Neutrophils % (Manual) 2 Lymphocytes % (Manual) 6 L Monocytes % (Manual) 6 Eosinophils % (Manual) 2 Basophils % (Manual) 2 Neutrophils # (Manual) 2.1 Band Neutrophils # 0.0 Absolute Lymphocytes (Manual) 0.1 L Absolute Monocytes (Manual) 0.1 L Basophils # (Manual) 0.0 Platelet Estimate DECREASED Giant Platelets 12 H Polychromasia 2+ Anisocytosis 3+ Macrocytosis 3+ Medications Medications Current Medications Sodium Chloride (NS) 1,000 ml @ 100 mls/hr Q10H IV Last administered on 00:21; Admin Dose 100 MLS/HR; Start 07/31/17 at 11:15 Ondansetron HCl (Zofran Inj) 4 mg Q6H PRN IV NAUSEA AND/OR VOMITING; Start 07/31/17 at 11:30 Acetaminophen (Tylenol Tab) 650 mg Q6H PRN PO PAIN LEVEL 1-3 OR FEVER Last administered on 08/04/17 08:37; Admin Dose 650 MG; Start 07/31/17 at 11:30 Acetaminophen (Tylenol Supp) 650 mg Q6H PRN [place] PAIN LEVEL 1-3 OR FEVER; Start 07/31/17 at 11:30 Morphine Sulfate (morphine) 2 mg Q4H PRN IV SEVERE PAIN LEVEL 7-10 Last administered on 08/06/17 08:46; Admin Dose 2 MG; Start 07/31/17 at 11:30 Famotidine (Pepcid) 20 mg Q12 PO Last administered on 08/06/17 08:45; Admin Dose 20 MG; Start 07/31/17 at 21:00 Docusate Sodium (Colace) 100 mg Q12 PO Last administered on 08/06/17 08:45; Admin Dose 100 MG; Start 08/03/17 at 21:00 Bisacodyl (Dulcolax) 10 mg DAILY PRN PO CONSTIPATION Last administered on 08/03 16:16; Admin Dose 10 MG; Start 08/03/17 at 11:30 Cephalexin (Keflex) 500 mg Q8 PO Last administered on 08/06/17 05:31; Admin Dose 500 MG; Start 08/03/17 at 14:00; Stop 08/08/17 at 13:59 KATHY DEGROOT M.D. Aug 06, 2017 09:18
--- NOTE | 2017-08-06 11:24 | PN ---
Date/Time of Note Date/Time of Note DATE: 08/06/17 TIME: 11:23 Assessment/Plan Lines/Catheters IV Catheter Type (from [facility]): Mid Line Toussaint in Place (from [facility]): No Assessment/Plan Chief Complaint/Hosp Course 1. Cholelithiasis without cholecystitis/choledocholithiasis: No pain, negative roberson's; discussed cholecystectomy; refusing any intervention at this time -no emergent surgical intervention needed at this time; eventual lap reginald, can be done outpatient -follow up with pcp (to find pcp) 2. Generalized weakness: no focal weakness -further workup per medical team 3. Transaminitis; elevated bili; AST greater elevation that alk phos > likely 2/ 2 hepatocellular disease (hep c hx) more than biliary tree obstruction; improving; -trend 4. Pancytopenia: likely 2/2 liver dx +/- other; -per onc consult- neupogen per onc recs for thrombocytopenia -supportive 5. Macrocytic anemia with Grade III/IV esophageal varices (Post EVL 3), Gastritis, Duodenitis -ppi -bp control -monitor and transfuse as needed 6. History of asthma -supportive 7. Ventral hernia : no pain, reducible -eventual corrective surgery 8. Alcohol abuse -strongly advice cessation -?outpatient rehab program 9. Hepatitis C with Cirrhosis -management per hepatology/gi Thank you, Problems: Subjective 24 Hr Interval Summary No c/o abdominal pain/discomfort. Tolerating diet. No fevers, chills, sob, congested cough, cp, palpitations, curtis, dizziness, n/v/d/dysuria. Exam/Review of Systems Vital Signs Vitals Vital Signs Date Time Temp Pulse Resp B/P Pulse Ox O2 Delivery O2 Flow Rate FiO2 08/06/17 09:07 Nasal Cannula 2.0 08/06/17 08:06 99.2 111 20 135/86 100 08/03/17 20:35 21 Intake and Output 08/05/17 08/05/17 08/06/17 15:00 23:00 07:00 Intake Total 1690 ml 750 ml Output Total 1100 ml 1000 ml Balance 590 ml -250 ml Exam Free Text/Dictation Constitutional: alert, oriented (x2) Psych: anxiety Head: atraumatic, normocephalic Eyes: nl lids, nl sclera ENMT: mucosa pink and moist, nl nasal mucosa & septum Neck: non-tender, supple Respiratory: clear to auscultation, normal air movement Cardiovascular: nl pulses Gastrointestinal: bowel sounds, non-tender, other (ventral hernia), soft, surgical scars Musculoskeletal: nl extremities to inspection Extremities: normal pulses Neurological: No focal weakness, No nl strength Skin: ecchymosis, No rash or lesions Results Result Diagram: 08/06/17 0526 08/04/17 [id number] HIGINIO MAXWELL MD Aug 06, 2017 11:24
[2017-08-06] MEDS ORDERED: PANT40TA3 PO (14:11)
[2017-08-06 14:14] VITALS: BP 127/83; RESP 20
== END 2017-08-06 15:50 | disposition home or self-care (01) | DRG 432 ==
LOC: E/R 14:55 → PP2 07-31 10:20
PROVIDERS: ADMIT Internal Medicine; ATTEND Internal Medicine
PROC: 30233R1 Transfusion of Nonautologous Platelets into Peripheral Vein, Percutaneous Approach (ICD-10-PCS; 2017-07-31)
PROC: 06L38CZ Occlusion of Esophageal Vein with Extraluminal Device, Via Natural or Artificial Opening Endoscopic (ICD-10-PCS; principal; 2017-08-01 22:00)
DX: K70.30 Alcoholic cirrhosis of liver without ascites (principal); I85.11 Secondary esophageal varices with bleeding; D61.818 Other pancytopenia; R65.10 Systemic inflammatory response syndrome (SIRS) of non-infectious origin without acute organ dysfunction; K76.6 Portal hypertension; R78.81 Bacteremia; D69.59 Other secondary thrombocytopenia; D62 Acute posthemorrhagic anemia; M84.48XA Pathological fracture, other site, initial encounter for fracture; R16.1 Splenomegaly, not elsewhere classified; R53.81 Other malaise; Z59.0 Homelessness; F10.20 Alcohol dependence, uncomplicated; E87.6 Hypokalemia; J45.909 Unspecified asthma, uncomplicated; K43.9 Ventral hernia without obstruction or gangrene; G89.29 Other chronic pain; I10 Essential (primary) hypertension; E11.9 Type 2 diabetes mellitus without complications; B18.2 Chronic viral hepatitis C; K80.20 Calculus of gallbladder without cholecystitis without obstruction; K29.70 Gastritis, unspecified, without bleeding; K29.80 Duodenitis without bleeding; M48.061 Spinal stenosis, lumbar region without neurogenic claudication; Z87.891 Personal history of nicotine dependence
CPT/HCPCS: 36430; 71010; 72148; 74181; 76700; 80048; 80053; 80061; 80202; 82105; 82140; 82525; 82607; 82746; 83036; 83605; 83615; 83690; 83735; 84100; 84134; 84443; 84484; 85025; 85049; 85362; 85378; 85384; 85610; 85651; 85670; 85730; 86140; 86308; 86644; 86703; 86704; 86709; 86803; 86850; 86900; 86901; 86945; 87040; 87086; 87340; 87522; 93005; 93306; 94640; 97162; 97530; J1956; J2270; J2405; J3010; J3370; J3475; J7030; J7040; J7050; P9035

== ENCOUNTER 2017-08-13 14:37 | Emergency (ER) | payer MEDICARE, OTHER ==
[~2017-08-13] VITALS: Ht 172.7 cm; Wt 71.8 kg
[~2017-08-13 14:37] MED LIST changes: +PANT40TA3 PO
[2017-08-13 14:43] VITALS: Ht 172.7 cm; Wt 71.8 kg
[2017-08-13] MEDS ORDERED: SOD CHLORIDE 0.9% 1,000 ML IV STA (16:16)
[2017-08-13] MEDS ORDERED: KETOROLAC 15 MG INJ IV STA (16:16)
[2017-08-13] MEDS ORDERED: morphine 4 MG/ML VIAL IV STA ×2 (16:16→20:18)
[2017-08-13 17:23] LABS: ABNORMAL IP MESSAGE 1; BASOPHILS % 1.1 % (0.0-2.0); EOSINOPHILS # 0.1 10^3/ul (0.0-0.5); EOSINOPHILS % 3.4 % (0.0-7.0); HEMATOCRIT 38.8 % (42.0-52.0); HEMOGLOBIN 12.5 g/dl (14.0-18.0); LYMPHOCYTES # 0.6 10^3/ul (0.8-2.9); MEAN CORPUSCULAR HEMOGLOBIN 33.7 pg (29.0-33.0); MEAN CORPUSCULAR HGB CONC 32.2 g/dl (32.0-37.0); MEAN CORPUSCULAR VOLUME 104.6 fl (82.0-101.0); MEAN PLATELET VOLUME 11.1 fl (7.4-10.4); MONOCYTE # 0.6 10^3/ul (0.3-0.9); MONOCYTES % 16.6 % (0.0-11.0); NEUTROPHIL # 2.1 10^3/ul (1.6-7.5); NEUTROPHILS % 60.3 % (39.0-77.0); PLATELET COUNT 66 10^3/UL (140-415); POSITIVE DIFF @See below; RED BLOOD COUNT 3.71 10^6/ul (4.70-6.10); RED CELL DISTRIBUTION WIDTH 15.9 % (11.5-14.5); WHITE BLOOD COUNT 3.5 10^3/ul (4.8-10.8)
[2017-08-13 17:44] LABS: ALBUMIN 2.8 g/dl (3.3-4.9); ALBUMIN/GLOBULIN RATIO 0.59; BILIRUBIN,INDIRECT 1.6 mg/dl (0-1.1); BILIRUBIN,TOTAL 1.6 mg/dl (0.2-1.3); CALCIUM 8.2 mg/dl (8.4-10.2); CREATININE 0.61 mg/dl (0.61-1.24); TOTAL PROTEIN 7.5 g/dl (6.1-8.1)
--- NOTE | 2017-08-13 18:29 | RADRPT ---
PROCEDURE: XR thoracic Spine. CLINICAL INDICATION: History of fracture with severe back pain. TECHNIQUE: AP, lateral and swimmer's views of the thoracic spine were obtained. COMPARISON: MRI 08/01/2017. FINDINGS: The upper thoracic spine is not well visualized on the lateral view. The bone mineralization is age appropriate. No definite acute fracture or subluxation of the thoracic spine. Superior endplate compression fract ures are noted of the L1, L2, and L3 vertebral bodies. There is mild scattered disc space narrowing. Visualized lung appears unremarkable. IMPRESSION: 1. Upper thoracic spine is not well visualized on the lateral view. No definite acute fracture or kumar bluxation of the thoracic spine. If there is continued clinical concern, CT is recommended. 2. L1-L3 superior endplate compression fractures as seen on prior MRI. RPTAT: GG Physician Brant Date Time Electronically viewed and signed by Najma Emerson Physician on 08/13/2017 18:28 PH/
--- NOTE | 2017-08-13 18:30 | RADRPT ---
PROCEDURE: XR Lumbar Spine. CLINICAL INDICATION: Severe low back pain. History of fractures TECHNIQUE: Supine AP, cone-down lateral, and lateral views of the lumbar spine were obtained. COMPARISON: MRI lumbar spine 08/01/2017 FINDINGS: Mineralization is within normal limits. Loss of axial height involving the superior L1, L2 and L3 e ndplates are again noted consistent with the previously identified chronic compression deformities. No acute or new fracture is identified. Lumbar lordosis is preserved. No vertebral subluxation is seen. Degenerative disk disease is present most severe at L4-5 and L5-S1 but also seen at the L2-3 . Spondylosis is greatest to the right at L4-5 and L5-S1. Paraspinal contours are unremarkable. RPTAT:HJJR IMPRESSION: 1. Chronic compression deformities of the L1, L2 and L3 as seen on the MRI of 08/01/2017 without fu rther loss of axial height or interval change allowing for the different modalities. 2. No evidence of new or acute fracture. 3. Multilevel degenerative disk disease and spondylosis greatest to the right at L4-5 and L5-S1. Physician Roger Date Time Electronically viewed and signed by Physician Roger on 08/13/2017 18:29 JR/
[2017-08-13] MEDS ORDERED: NAPR-685 PO (20:34)
[2017-08-13] MEDS ORDERED: HYDR-906 PO (20:34)
[2017-08-13] MEDS ORDERED: OXYC-279 PO (20:38)
--- NOTE | 2017-08-13 20:44 | ERD ---
ER Documentation Chief Complaint Chief Complaint back pain pt was brought to er by [employer] board [employer] care employee, see note HPI This 67-year-old male was brought to the emergency room from his care as he complained of lower back pain. He has chronic back pain that has been increasing lately. He has no new trauma or injuries. He does not have a painter ski edge currently. He denies any other physical symptoms. He has no shortness of breath, chest pain, dizziness, does not suffer from frequent falls. He is fully ambulatory. He says the ambulation exacerbates his pain. ROS All systems reviewed and are negative except as per history of present illness. Medications Home Meds Active Scripts Oxycodone HCl/Acetaminophen (Percocet 5-325 mg Tablet) 1 Each Tablet, 1 EACH PO Q6 for SEVERE PAIN LEVEL 7-10, #20 TAB Prov:ROJELIOMAGEN DO 08/13/17 Naproxen* (Naproxen*) 375 Mg Tablet, 375 MG PO BID Y for PAIN, #19 TAB Prov:ROJELOIMAGEN DO 08/13/17 Hydrocodone/Acetaminophen ([place] 5-325 Tablet) 1 Each Tablet, 1 EACH PO Q6, #24 TAB Prov:GREENMAGEN DO 08/13/17 Pantoprazole* (Protonix*) 40 Mg Tablet.dr, 40 MG PO BID for 40 Days, #80 TAB Prov:CONOR CARDONA NP 08/06/17 Hydrocodone/Acetaminophen ([place] 5-325 Tablet) 1 Each Tablet, 1 TAB PO Q6H Y for PAIN, #7 TAB Prov:LIN BRAGA PA-C 03/15/17 Albuterol Sulfate* (Proair HFA*) 8.5 Gm Hfa.aer.ad, 2 PUFF INH Q4H Y for WHEEZING AND SOB, #1 INHALER Prov:MARCIANO CHE PA-C 01/04/17 Allergies Allergies: Coded Allergies: No Known Drug Allergies (Verified Allergy, Unknown, 03/15/17) PMhx/Soc History of Surgery: Yes Anesthesia Reaction: No Hx Neurological Disorder: No Hx Respiratory Disorders: No Hx Cardiac Disorders: Yes (htn) Hx Psychiatric Problems: No Hx Miscellaneous Medical Probl: Yes Hx Alcohol Use: Yes Hx Substance Use: No Hx Tobacco Use: No Smoking Status: Never smoker Physical Exam Vitals Vital Signs Date Time Temp Pulse Resp B/P Pulse Ox O2 Delivery O2 Flow Rate FiO2 08/13/17 14:43 99.0 82 20 173/79 97 Physical Exam Const: [] No distress Head: Atraumatic Eyes: Normal Conjunctiva, EOMI, CHELY ENT: Normal External Ears, Nose and Mouth. Resp: Clear to auscultation bilaterally Cardio: Regular rate and rhythm, no murmurs Abd: Soft, non tender, non distended. Normal bowel sounds Skin: No petechiae or rashes Back: No midline or flank tenderness, mild bilateral paraspinal muscle spasm without specific tenderness to palpation, no deformities. Ext: No cyanosis, or edema Neur: Awake and alert oriented 3, no focal deficits, normal gait Psych: Normal Mood and Affect Result Diagram: 08/13/17170908/13/171709 Results 24 hrs Laboratory Tests Test 08/13/17 17:10 White Blood Count 3.510^3/ul Red Blood Count 3.7110^6/ul Hemoglobin 12.5g/dl Hematocrit 38.8% Mean Corpuscular Volume 104.6fl Mean Corpuscular Hemoglobin 33.7pg Mean Corpuscular Hemoglobin Concent 32.2g/dl Red Cell Distribution Width 15.9% Platelet Count 6610^3/UL Mean Platelet Volume 11.1fl Neutrophils % 60.3% Lymphocytes % 18.0% Monocytes % 16.6% Eosinophils % 3.4% Basophils % 1.1% Nucleated Red Blood Cells % 0.0/100WBC Neutrophils # 2.110^3/ul Lymphocytes # 0.610^3/ul Monocytes # 0.610^3/ul Eosinophils # 0.110^3/ul Basophils # 0.010^3/ul Nucleated Red Blood Cells # 0.010^3/ul Sodium Level 137mmol/L Potassium Level 4.0mmol/L Chloride Level 108mmol/L Carbon Dioxide Level 19mmol/L Anion Gap 14 Blood Urea Nitrogen 6mg/dl Creatinine 0.61mg/dl Glucose Level 108mg/dl Calcium Level 8.2mg/dl Total Bilirubin 1.6mg/dl Direct Bilirubin 0.00mg/dl Indirect Bilirubin 1.6mg/dl Aspartate Amino Transf (AST/SGOT) 82IU/L Alanine Aminotransferase (ALT/SGPT) 38IU/L Alkaline Phosphatase 259IU/L Total Protein 7.5g/dl Albumin 2.8g/dl Globulin 4.70g/dl Albumin/Globulin Ratio 0.59 Lipase 55U/L Current Medications Medications (Trade) Dose Ordered Sig/Eddie Route PRN Reason Start Time Stop Time Status Last Admin Dose Admin Sodium Chloride (NS) 1,000 ml @ 1,000 mls/hr Q1H STAT IV 08/13/17 16:16 08/13/17 17:15 DC 08/13/17 17:21 Morphine Sulfate (morphine) 4 mg ONCE STAT IV 08/13/17 16:16 08/13/17 16:18 DC 08/13/17 17:21 Ketorolac Tromethamine (Toradol) 15 mg ONCE STAT IV 08/13/17 16:16 08/13/17 16:18 DC 08/13/17 17:22 Morphine Sulfate (morphine) 4 mg ONCE STAT IV 08/13/17 20:18 08/13/17 20:19 DC Oxycodone/ Acetaminophen (Percocet (5/ 325)) 1 tab ONCE ONCE PO 08/13/17 21:00 08/13/17 21:01 Procedures/MDM 67-year-old with chronic back pain. Images were performed which showed the patient has the same compression fractures that he had prior with no new injuries. Patient's pain was easily resolved emergency room with a small dose of Toradol as well as 4 mg of morphine. Is fully ambulatory to the bathroom back. Does have elevated bilirubin, decreased white blood cell count and thrombocytopenia consistent with his prior hepatitis as the patient does have a history of hep C and alcoholic liver disease. He has no bleeding currently. Is made better in the emergency room I do not see any need for acute admission. I am recommending that he follow up with a painter ski edge and possibly an orthospine doctor. Thoracic and cervical x-ray interpretation: Stable compression fractures with no new injury, no new fracture or subluxation. No soft tissue abnormalities. Departure Diagnosis: Primary Impression: Chronic pain Condition: Stable Patient Instructions: Back Spasm, No Trauma, Chronic Pain Referrals: COMMUNITY CLINICS YOU HAVE RECEIVED A MEDICAL SCREENING EXAM AND THE RESULTS INDICATE THAT YOU DO NOT HAVE A CONDITION THAT REQUIRES URGENT TREATMENT IN THE EMERGENCY DEPARTMENT. FURTHER EVALUATION AND TREATMENT OF YOUR CONDITION CAN WAIT UNTIL YOU ARE SEEN IN YOUR DOCTORS OFFICE WITHIN THE NEXT 1-2 DAYS. IT IS YOUR RESPONSIBILITY [facility] IF YOU HAVE A PRIMARY DOCTOR --you should call your primary doctor and schedule an appointment IF YOU DO NOT HAVE A PRIMARY DOCTOR YOU CAN CALL OUR PHYSICIAN REFERRAL HOTLINE AT IF YOU CAN NOT AFFORD TO SEE A PHYSICIAN YOU CAN CHOSE FROM THE FOLLOWING [facility] [address] [facility] [address] [facility] [facility] [address] [facility] [address]. [facility] [address] [facility] [facility] [address] Additional Instructions: Call your primary care doctor TOMORROW for an appointment during the next 1-2 days. Obtain a referral for a painter ski edge and possibly an orthopedist who deals with the spine. See the doctor sooner or return here if your condition worsens before your appointment time. MAGEN SERRATO DO Aug 13, 2017 20:44
[2017-08-13] MEDS ORDERED: OXYCODONE/ACETAMINOPHEN (5/325) TAB PO ONE (21:00)
[2017-08-13 21:52] LABS: URINE BLOOD (Dip) POC Negative (NEGATIVE)
[2017-08-13 21:54] VITALS: BP 157/98; PULSE 90; RESP 20; TEMP 99
== END 2017-08-13 21:58 | disposition home or self-care (01) ==
LOC: FTE 14:37 → E/R 21:58
DX: M54.5 Low back pain (principal); G89.29 Other chronic pain; I10 Essential (primary) hypertension
CPT/HCPCS: 36415; 72072; 72100; 80053; 81003; 83690; 85025; 96374; 96375; 96376; 99284; J1885; J2270; J7030

== ENCOUNTER 2017-08-25 19:16 | Emergency (ER) | payer MEDICARE, OTHER ==
[~2017-08-25] VITALS: Ht 172.7 cm; Wt 69.5 kg
[~2017-08-25 19:16] MED LIST changes: +NAPR-685 PO; +OXYC-279 PO
[2017-08-25 19:27] VITALS: Ht 172.7 cm; Wt 69.5 kg
[2017-08-25] MEDS ORDERED: SOD CHLORIDE 0.9% 1,000 ML IV STA (19:43)
[2017-08-25] MEDS ORDERED: morphine 4 MG/ML VIAL IV STA (19:43)
[2017-08-25] MEDS ORDERED: ONDANSETRON 4 MG INJ IV STA ×2 (19:43→22:30)
[2017-08-25] MEDS ORDERED: METHYLPREDNISOLONE 125 MG INJ IV ONE (20:00)
[2017-08-25 20:28] LABS: ABNORMAL IP MESSAGE 1; HEMATOCRIT 32.8 % (42.0-52.0); HEMOGLOBIN 10.8 g/dl (14.0-18.0); MEAN CORPUSCULAR HGB CONC 32.9 g/dl (32.0-37.0); MEAN CORPUSCULAR VOLUME 103.1 fl (82.0-101.0); MEAN PLATELET VOLUME 12.4 fl (7.4-10.4); PLATELET COUNT 41 10^3/UL (140-415); POSITIVE DIFF @See below; RED BLOOD COUNT 3.18 10^6/ul (4.70-6.10); RED CELL DISTRIBUTION WIDTH 14.6 % (11.5-14.5); WHITE BLOOD COUNT 2.7 10^3/ul (4.8-10.8)
[2017-08-25 20:46] LABS: INR 1.19; PROTIME 15.3 Sec (11.9-14.9); PT RATIO 1.2
[2017-08-25 20:47] LABS: PARTIAL THROMBOPLASTIN TIME 33.4 Sec (25.0-35.0)
[2017-08-25 20:50] LABS: ALANINE AMINOTRANSFERASE 35 IU/L (13-69); ALBUMIN 2.7 g/dl (3.3-4.9); ALKALINE PHOSPHATASE 255 IU/L (42-121); ANION GAP 14 (8-16); ASPARTATE AMINO TRANSFERASE 65 IU/L (15-46); BILIRUBIN,INDIRECT 0.9 mg/dl (0-1.1); BILIRUBIN,TOTAL 0.9 mg/dl (0.2-1.3); BLOOD UREA NITROGEN 10 mg/dl (7-20); CALCIUM 8.3 mg/dl (8.4-10.2); CARBON DIOXIDE 21 mmol/L (21-31); CHLORIDE 108 mmol/L (97-110); CREATININE 0.61 mg/dl (0.61-1.24); GLUCOSE 156 mg/dl (70-220); POTASSIUM 3.8 mmol/L (3.5-5.1); SODIUM 139 mmol/L (135-144); TOTAL PROTEIN 7.2 g/dl (6.1-8.1)
[2017-08-25 20:57] LABS: ANISOCYTOSIS 1+ (0-0); BASOPHILS % (M) 2 % (0-2); EOSINOPHILS % (M) 3 % (0-7); MONOCYTES % (M) 4 % (0-11); PLATELET ESTIMATE SIG DECREASED; POIKILOCYTOSIS 1+ (0-0); POLYCHROMASIA 1+ (0-0)
[2017-08-25 21:01] LABS: TROPONIN-I < 0.012 ng/ml (0.00-0.12)
[2017-08-25 21:09] VITALS: BP 166/97; PULSE 76; RESP 17
[2017-08-25 21:55] LABS: ADD UMIC NO; UR ASCORBIC ACID NEGATIVE (NEGATIVE); UR BILIRUBIN (Dip) NEGATIVE (NEGATIVE); UR BLOOD (Dip) NEGATIVE (NEGATIVE); UR CLARITY CLEAR (CLEAR); UR COLOR YELLOW (YELLOW); UR GLUCOSE (Dip) NEGATIVE (NEGATIVE); UR KETONES (Dip) NEGATIVE (NEGATIVE); UR LEUKOCYTE ESTERASE (Dip) NEGATIVE Leu/ul (NEGATIVE); UR NITRITE (Dip) NEGATIVE (NEGATIVE); UR TOTAL PROTEIN (Dip) NEGATIVE (NEGATIVE); UR UROBILINOGEN (Dip) 1+ mg/dL (NEGATIVE)
--- NOTE | 2017-08-25 21:56 | ERD ---
ER Documentation Chief Complaint Chief Complaint MAGALY [id number],lower left back pain radiating to left leg HPI This is a 67-year-old male with a known history of chronic compression fractures of L1-L2-L3 and sciatic pain that presents to the emergency department complaining of low back pain for the past 2 months. The patient had been seen and evaluated in the emergency department at [facility] on August 01 and August 13, 2017. The patient had an MRI that showed chronic compression fractures and no evidence of cauda equina syndrome. The patient indicates that he had a pain prescription that was taken by his landlord and therefore has not taken any analgesic medication for the past 48 hours. He states the pain is more prominent in the left buttocks region and radiates down the lateral aspect of the left leg. He has no fevers or shaking or chills. He denies any changes in his bladder or bowel frequency. Denies any saddle anesthesia. He denies any frequency urgency or dysuria no gross hematuria. Denies any recent trauma to his lower back. He denies any chest pain or pressure that radiates to the neck arm back or jaw. No shortness of breath at rest or exertion. ROS All systems reviewed and are negative except as per history of present illness. Medications Home Meds Active Scripts Oxycodone HCl/Acetaminophen (Percocet 5-325 mg Tablet) 1 Each Tablet, 1 EACH PO Q6 for SEVERE PAIN LEVEL 7-10, #20 TAB Prov:MAGEN SERRATO DO 08/13/17 Naproxen* (Naproxen*) 375 Mg Tablet, 375 MG PO BID Y for PAIN, #19 TAB Prov:MAGEN SERRATO DO 08/13/17 Hydrocodone/Acetaminophen ([place] 5-325 Tablet) 1 Each Tablet, 1 EACH PO Q6, #24 TAB Prov:MAGEN SERRATO DO 08/13/17 Pantoprazole* (Protonix*) 40 Mg Tablet., 40 MG PO BID for 40 Days, #80 TAB Prov:CONOR CARDONA NP 08/06/17 Hydrocodone/Acetaminophen ([place] 5-325 Tablet) 1 Each Tablet, 1 TAB PO Q6H Y for PAIN, #7 TAB Prov:LIN BRAGA PA-C 03/15/17 Albuterol Sulfate* (Proair HFA*) 8.5 Gm Hfa.aer.ad, 2 PUFF INH Q4H Y for WHEEZING AND SOB, #1 INHALER Prov:MARCIANO CHE PA-C 01/04/17 Allergies Allergies: Coded Allergies: No Known Drug Allergies (Verified Allergy, Unknown, 03/15/17) PMhx/Soc History of Surgery: Yes Anesthesia Reaction: No Hx Neurological Disorder: No Hx Respiratory Disorders: No Hx Cardiac Disorders: Yes (htn) Hx Psychiatric Problems: No Hx Miscellaneous Medical Probl: Yes Hx Alcohol Use: Yes Hx Substance Use: No Hx Tobacco Use: No Smoking Status: Never smoker Physical Exam Vitals Vital Signs Date Time Temp Pulse Resp B/P Pulse Ox O2 Delivery O2 Flow Rate FiO2 08/25/17 21:09 76 17 166/97 98 Room Air 08/25/17 19:27 98.2 85 18 159/116 100 Physical Exam Constitutional:Well-developed. Well-nourished. HEENT:Normocephalic. Atraumatic.Pupils were equal round reactive to light. Moist mucous membranes.No tonsillar exudates. Neck: No nuchal rigidity. No lymphadenopathy. No posterior cervical spine tenderness or step-offs. Respiratory: Not using accessory muscles of respiration.Lungs were clear to auscultation bilaterally. No rhonchi. No rales. No wheezing. Cardiovascular: Regular rate regular rhythm.No murmurs. No rubs were appreciated.S1, S2 normal. Distal pulses are palpable 2+ bilaterally. GI: Abdomen was soft. Nontender. Non Distended. No pulsatile abdominal masses or bruits. No rebound. No guarding. Bowel sounds were present and normal. Muscle skeletal: Full range of motion of both the upper and lower extremities bilaterally.Normal muscle tone.No assymetrical calf tenderness or swelling. Straight leg test positive on the left. Lower extremities of equal length and symmetrical no internal or external rotation. Skin: No petechia, no purpura. No lesions on the palms or the soles of the feet. No maculopapular rash. NEURO: Patient was alert, awake, orientated x3.No facial droop. Gait observed and normal with no ataxia.Speech had regular rate and rhythm. No focal neurological deficits. Result Diagram: 08/25/17200208/25/172002 Results 24 hrs Laboratory Tests Test 08/25/17 20:03 08/25/17 21:05 White Blood Count 2.710^3/ul Red Blood Count 3.1810^6/ul Hemoglobin 10.8g/dl Hematocrit 32.8% Mean Corpuscular Volume 103.1fl Mean Corpuscular Hemoglobin 34.0pg Mean Corpuscular Hemoglobin Concent 32.9g/dl Red Cell Distribution Width 14.6% Platelet Count 4110^3/UL Mean Platelet Volume 12.4fl Neutrophils % % Segmented Neutrophils % (Manual) 62% Lymphocytes % % Lymphocytes % (Manual) 29% Monocytes % % Monocytes % (Manual) 4% Eosinophils % % Eosinophils % (Manual) 3% Basophils % % Basophils % (Manual) 2% Nucleated Red Blood Cells % 0.0/100WBC Neutrophils # 10^3/ul Absolute Lymphocytes (Manual) 0.710^3/ul Lymphocytes # 10^3/ul Monocytes # 10^3/ul Absolute Monocytes (Manual) 0.110^3/ul Eosinophils # 10^3/ul Basophils # 10^3/ul Basophils # (Manual) 0.010^3/ul Nucleated Red Blood Cells # 10^3/ul Platelet Estimate SIG DECREASED Polychromasia 1+ Poikilocytosis 1+ Anisocytosis 1+ Macrocytosis 1+ Prothrombin Time 15.3Sec Prothrombin Time Ratio 1.2 INR International Normalized Ratio 1.19 Activated Partial Thromboplast Time 33.4Sec Sodium Level 139mmol/L Potassium Level 3.8mmol/L Chloride Level 108mmol/L Carbon Dioxide Level 21mmol/L Anion Gap 14 Blood Urea Nitrogen 10mg/dl Creatinine 0.61mg/dl Glucose Level 156mg/dl Calcium Level 8.3mg/dl Total Bilirubin 0.9mg/dl Direct Bilirubin 0.00mg/dl Indirect Bilirubin 0.9mg/dl Aspartate Amino Transf (AST/SGOT) 65IU/L Alanine Aminotransferase (ALT/SGPT) 35IU/L Alkaline Phosphatase 255IU/L Troponin I < 0.012ng/ml Total Protein 7.2g/dl Albumin 2.7g/dl Globulin 4.50g/dl Albumin/Globulin Ratio 0.60 Urine Color YELLOW Urine Clarity CLEAR Urine pH 5.0 Urine Specific [place] 1.010 Urine Ketones NEGATIVEmg/dL Urine Nitrite NEGATIVEmg/dL Urine Bilirubin NEGATIVEmg/dL Urine Urobilinogen 1+mg/dL Urine Leukocyte Esterase NEGATIVELeu/ul Urine Hemoglobin NEGATIVEmg/dL Urine Glucose NEGATIVEmg/dL Urine Total Protein NEGATIVEmg/dl Current Medications Medications (Trade) Dose Ordered Sig/Eddie Route PRN Reason Start Time Stop Time Status Last Admin Dose Admin Sodium Chloride (NS) 1,000 ml @ 1,000 mls/hr Q1H STAT IV 08/25/17 19:43 08/25/17 20:42 DC 08/25/17 19:57 Morphine Sulfate (morphine) 4 mg ONCE STAT IV 08/25/17 19:43 08/25/17 19:45 DC 08/25/17 19:57 Ondansetron HCl (Zofran Inj) 4 mg ONCE STAT IV 08/25/17 19:43 08/25/17 19:45 DC 08/25/17 19:56 Methylprednisolone Sodium Succinate (Solu-Medrol) 125 mg ONCE ONCE IV 08/25/17 20:00 08/25/17 20:01 DC 08/25/17 19:56 Procedures/MDM The patient presented to the emergency department with back pain. My differential diagnosis included but was not limited to spinal origins of the pain such as fracture, osteomyelitis, epidural abscess, neoplasm, spondylolishtesis, discogenic, cauda equina syndrome or musculoligamentous. Nonspinal causes such as AAA, upper UTI, renal colic, aortic dissection, abdominal neoplasm were also considered as an etiology into their pain. The patient had leukopenia with a macrocytic anemia. The patient however had no signs of cauda equina syndrome. He received IV analgesic medication and had resolution of his symptoms and was able to ambulate. He stated he felt comfortable being discharged home. He was given a prescription of analgesic medication which included [place]. He is instructed to follow-up with his PCP for further evaluation. I also obtained a 12-lead EKG tracing to rule out atypical myocardial infarction. 12 Lead EKG tracing ordered and reviewed by myself showed: Normal sinus rhythm of 70 bpm and no arrhythmia. ME interval normal. QRS duration normal. No ST segment elevation No ST segment depression. No changes consistent with acute ischemia. The patient was discharged home in fair condition. They were instructed to return to the emergency department at any time if there was any worsening of their condition. The patient stated they would follow up with their PCP in the next 24-48 hours to initiate a suitable medication regimen under the care of their PCP as well as to allow their PCP to monitor any drug reactions. The patient was discharged home with prescriptions after they gave informed consent to the new medication. They were also fully informed by myself on the adverse effects and adverse drug interactions in order to provide adequate safeguards to prevent possible adverse reactions to medications. Departure Diagnosis: Primary Impression: Sciatica of left side Additional Impression: Leukopenia Leukopenia type: unspecified Qualified Code: D72.819 - Leukopenia, unspecified type Condition: RICHARD Lim Aug 25, 2017 21:56
[2017-08-25] MEDS ORDERED: HYDR-906 PO (22:28)
[2017-08-25] MEDS ORDERED: HYDROmorphONE 1 MG/ML SYG IV STA (22:30)
[2017-08-28 17:33] LABS: PATH REVIEW CH
== END 2017-08-26 00:22 | disposition home or self-care (01) ==
LOC: E/R 19:16
DX: M54.42 Lumbago with sciatica, left side (principal); I10 Essential (primary) hypertension; R07.9 Chest pain, unspecified
CPT/HCPCS: 80053; 81003; 84484; 85025; 85610; 85730; 87086; 93005; 96374; 96375; 96376; 99284; J1170; J2270; J2405; J2930; J7030